=== PATIENT | female | born 1950 | race Hispanic/Latino ===

== ENCOUNTER 2018-06-15 20:43 | Emergency (ER) | payer OTHER ==
[2018-06-15] MEDS ORDERED: IBUPROFEN 400 MG TAB ONE (22:49)
[2018-06-15] MEDS ORDERED: ACETAMINOPHEN 325 MG TABLET ONE (23:12)
--- NOTE | 2018-06-15 23:14 | EDPHYS ---
Physician Documentation [facility] Name: Fiona Sandoval Age: 67 yrs Sex: Female : 1950 Arrival Date: 06/15/2018 Time: 20:58 Bed 9 Private MD: None, None ED Physician Dmitry Jonas HPI: 06/15 22:20 This 67 yrs old Female presents to ER via Wheelchair with complaints of Fall cp Injury. 22:20 Details of fall: The patient fell from an upright position, while walking. cp 22:20 Onset: The symptoms/episode began/occurred today. Associated injuries: The patient cp sustained right hip and right knee, painful ROM. 22:20 Severity of symptoms: in the emergency department the symptoms are unchanged, despite cp home interventions. Historical: - Allergies: 21:16 PENICILLINS; ak1 - Home Meds: 21:16 Simvastatin 100 mg Oral once daily [Active]; cyclobenzaprine 5 mg Oral tab 1 tab twice ak1 daily PRN for pain [Active]; - PMHx: 21:16 Hyperlipidemia; ak1 - PSHx: 21:16 None; ak1 - Immunization history:: Adult Immunizations unknown. - Social history:: Smoking status: Patient/guardian denies using tobacco. - Ebola Screening: : No symptoms or risks identified at this time. ROS: 22:25 Constitutional: Negative for body aches, chills, fever, poor PO intake. cp 22:25 Eyes: Negative for injury, pain, redness, and discharge. cp 22:25 Cardiovascular: Negative for chest pain, edema, palpitations. 22:25 Respiratory: Negative for cough, shortness of breath, wheezing. 22:25 Abdomen/GI: Negative for abdominal pain, nausea, vomiting, and diarrhea. 22:25 : Negative for urinary symptoms. 22:25 MS/extremity: Positive for pain, tenderness, of the right groin and right hip, Negative for decreased range of motion, deformity, paresthesias. 22:25 Neuro: Negative for altered mental status, headache, loss of consciousness, syncope, weakness. 22:25 All other systems are negative. Exam: 22:33 Constitutional: The patient appears in no acute distress, alert, awake, cp non-diaphoretic, non-toxic, well developed, well nourished. 22:33 Head/Face: Normocephalic, atraumatic. cp 22:33 Eyes: Periorbital structures: appear normal, Conjunctiva: normal, no exudate, no injection, Sclera: no appreciated abnormality, Lids and lashes: appear normal, bilaterally. 22:33 ENT: External ear(s): are unremarkable, Nose: is normal, Mouth: Lips: moist, Oral mucosa: moist, Posterior pharynx: is normal, airway is patent. 22:33 Neck: C-spine: vertebral tenderness, is not appreciated, crepitus, is not appreciated, ROM/movement: is normal, is supple, without pain, no range of motions limitations, no nuchal rigidity. 22:33 Chest/axilla: Inspection: normal, Palpation: is normal, no crepitus, no tenderness. 22:33 Cardiovascular: Rate: normal, Rhythm: regular. 22:33 Respiratory: the patient does not display signs of respiratory distress, Respirations: normal, no use of accessory muscles, no retractions, no splinting, no tachypnea. 22:33 Abdomen/GI: Inspection: abdomen appears normal, Bowel sounds: active, all quadrants, Palpation: abdomen is soft and non-tender, in all quadrants, rebound tenderness, is not appreciated, voluntary guarding, is not appreciated, involuntary guarding, is not appreciated. 22:33 Back: pain, is absent, ROM is normal, vertebral tenderness, is not appreciated. 22:33 Musculoskeletal/extremity: Perfusion: the extremity is normally perfused throughout, Sensation intact. Joints: All joints are normal except the right hip displays painful range of motion, tenderness, Weight bearing: able to fully bear weight. 22:33 Skin: cellulitis, is not appreciated, no rash present. 22:33 Neuro: Orientation: to person, place \T\ time. Mentation: is normal, Cerebellar function: is grossly normal, Motor: is normal, Sensation: is normal. 22:35 Musculoskeletal/extremity: Extremities: noted in the right knee: tenderness, There is cp no evidence of decreased ROM, deformity. Vital Signs: 21:13 Pulse 73; Resp 18; Temp 98.1(O); Pulse Ox 98% on R/A; Weight 83.91 kg (R); Height 5 ft. ak1 3 in. (160.02 cm) (R); Pain 6/10; 21:16 BP 124 / 72; ak1 21:13 Body Mass Index 32.77 (83.91 kg, 160.02 cm) ak1 MDM: 21:42 Patient medically screened. cp 23:12 Data reviewed: vital signs, nurses notes, radiologic studies, plain films. cp 06/15 22:14 Order name: XRAY Knee RIGHT 3 view cp 06/15 22:14 Order name: XRAY Pelvis cp 06/15 22:14 Order name: XRAY Hip RIGHT 2 view cp Administered Medications: 22:46 Not Given (Patient Refused): Ibuprofen 800 mg PO once 23:02 Drug: Tylenol 650 mg Route: PO; 23:23 Follow up: Response: No adverse reaction; No change in condition Disposition: 06/16 07:00 Co-signature as Attending Physician, Dmitry Jonas MD I agree with the assessment and juanito plan of care. Disposition: 06/15/18 23:14 Discharged to Home. Impression: Other slipping, tripping and stumbling and falls, Pain in right hip - from fall. - Condition is Stable. - Discharge Instructions: Hip Pain. - Medication Reconciliation Form, Thank You Letter, Antibiotic Education, Prescription Opioid Use form. - Follow up: Private Physician; When: 5 - 6 days; Reason: pain continues. - Problem is new. - Symptoms have improved. Signatures: Dispatcher [employer] Dmitry Smith MD MD cha Chretien, Felicia, RN RN Ramya Salcedo RN RN ak1 Dmitry Hammonds PA PA Corrections: (The following items were deleted from the chart) 06/15 23:16 23:12 Crutches ordered. [facility] 23:26 23:14 06/15/2018 23:14 Discharged to Home. Impression: Other slipping, tripping and fc stumbling and falls; Pain in right hip - from fall. Condition is Stable. Forms are Medication Reconciliation Form, Thank You Letter, Antibiotic Education, Prescription Opioid Use. Follow up: Private Physician; When: 5 - 6 days; Reason: pain continues. Problem is new. Symptoms have improved. cp
--- NOTE | 2018-06-15 23:14 | ER ---
Nurse's Notes [facility] Name: Fiona Sandoval Age: 67 yrs Sex: Female : 1950 Arrival Date: 06/15/2018 Time: 20:58 Bed 9 Private MD: None, None Diagnosis: Other slipping, tripping and stumbling and falls;Pain in right hip-from fall Presentation: 06/15 21:14 Presenting complaint: Patient states: slipped and "did splits" no LOC. pt c/o pain to ak1 right inner thigh and right groin. Transition of care: patient was not received from another setting of care. Onset of symptoms was June 15, 2018. Risk Assessment: Do you want to hurt yourself or someone else? Patient reports no desire to harm self or others. Care prior to arrival: None. 21:14 Method Of Arrival: Wheelchair ak1 21:14 Acuity: CONSTANTIN 4 ak1 23:26 Initial Sepsis Screen: Does the patient meet any 2 criteria? No. Patient's initial fc sepsis screen is negative. Does the patient have a suspected source of infection? No. Patient's initial sepsis screen is negative. Triage Assessment: 21:16 General: Appears in no apparent distress. ak1 Historical: - Allergies: 21:16 PENICILLINS; ak1 - Home Meds: 21:16 Simvastatin 100 mg Oral once daily [Active]; cyclobenzaprine 5 mg Oral tab 1 tab twice ak1 daily PRN for pain [Active]; - PMHx: 21:16 Hyperlipidemia; ak1 - PSHx: 21:16 None; ak1 - Immunization history:: Adult Immunizations unknown. - Social history:: Smoking status: Patient/guardian denies using tobacco. - Ebola Screening: : No symptoms or risks identified at this time. Screenin:53 Abuse screen: Denies threats or abuse. Denies injuries from another. Nutritional aj screening: No deficits noted. Tuberculosis screening: No symptoms or risk factors identified. Fall Risk Fall in past 12 months (25 points). Assessment: 21:53 General: Appears in no apparent distress. comfortable, Behavior is calm, cooperative. aj Pain: Complains of pain in right femoral area. Neuro: Level of Consciousness is awake, alert, obeys commands, Oriented to person, place, time, situation, Appropriate for age. Respiratory: Airway is patent Respiratory effort is even, unlabored, Respiratory pattern is regular, symmetrical. Derm: Skin is intact, is healthy with good turgor, Skin is pink, warm \\T\\ dry. normal. Musculoskeletal: Reports pain in right femoral area. 22:44 Reassessment: Pt has just returned from radiology. Attempted to give her the ordered fc Ibuprofen. Pt states that she cannot take that because it causes her to have nausea/vomiting. 23:12 Reassessment: Dmitry KHOURY in to re-examine pt and discuss results with her. fc Vital Signs: 21:13 Pulse 73; Resp 18; Temp 98.1(O); Pulse Ox 98% on R/A; Weight 83.91 kg (R); Height 5 ft. ak1 3 in. (160.02 cm) (R); Pain 6/10; 21:16 BP 124 / 72; ak1 21:13 Body Mass Index 32.77 (83.91 kg, 160.02 cm) ak1 ED Course: 20:58 Patient arrived in ED. dl4 20:58 None, None is Private Physician. dl4 21:13 Arm band placed on Patient placed in waiting room, Patient notified of wait time. ak1 21:15 Triage completed. ak1 21:42 Dmitry Hammonds PA is PHCP. cp 21:42 Dmitry Jonas MD is Attending Physician. cp 21:52 Agustina Sarkar, RN is Primary Nurse. aj 21:53 Placed in gown. Bed in low position. aj 22:40 XRAY Knee RIGHT 3 view In Process Unspecified. EDMS 22:40 XRAY Pelvis In Process Unspecified. EDMS 22:40 XRAY Hip RIGHT 2 view In Process Unspecified. EDMS 23:24 No provider procedures requiring assistance completed. Patient did not have IV access fc during this emergency room visit. Administered Medications: 22:46 Not Given (Patient Refused): Ibuprofen 800 mg PO once fc 23:02 Drug: Tylenol 650 mg Route: PO; fc 23:23 Follow up: Response: No adverse reaction; No change in condition fc Outcome: 23:14 Discharge ordered by . cp 23:25 Discharged to home ambulatory, with family. fc 23:25 Condition: good 23:25 Discharge instructions given to patient, family, Instructed on discharge instructions, follow up and referral plans. Demonstrated understanding of instructions, follow-up care, Prescriptions given X none 23:26 Patient left the ED. fc Signatures: Dispatcher [employer] Agustina Ochoa RN RN aj Chretien, Felicia, RN RN fc Krenek, Amber, RN RN ak1 Dmitry Hammonds PA PA cp Luna, David dl4
--- NOTE | 2018-06-16 08:27 | RAD REPORT ---
EXAM DESCRIPTION: RAD - Knee Right 3 View - 06/15/2018 10:39 pm CLINICAL HISTORY: slip and fall COMPARISON: No comparisons FINDINGS: Mild medial compartment space narrowing is present with small tibial spine osteophytes. No acute fracture or dislocation seen. Trace suprapatellar joint fluid.
--- NOTE | 2018-06-16 08:28 | RAD REPORT ---
EXAM DESCRIPTION: RAD - Hip Right 2 View - 06/15/2018 10:39 pm CLINICAL HISTORY: slip and fall;Pain COMPARISON: None FINDINGS: AP pelvis and right hip - multiple projections is submitted Bilateral hip osteoarthritic changes are noted. No acute fracture or dislocation is evident. No evide nce of AVN.
--- NOTE | 2018-06-16 17:14 | RAD REPORT ---
EXAM DESCRIPTION: RAD - Pelvis - 06/15/2018 10:39 pm CLINICAL HISTORY: Slip and fall;Pain COMPARISON: None FINDINGS: AP pelvis and right hip - multiple projections is submitted Bilateral hip osteoarthritic changes are noted. No acute fracture or dislocation is evident. No evide nce of AVN.
== END 2018-06-15 23:26 | disposition home or self-care (01) ==
LOC: ER 20:43
DX: M25.551 Pain in right hip (principal); W01.0XXA Fall on same level from slipping, tripping and stumbling without subsequent striking against object, initial encounter; Y93.01 Activity, walking, marching and hiking; Y92.9 Unspecified place or not applicable; Z88.0 Allergy status to penicillin; E78.5 Hyperlipidemia, unspecified
CPT/HCPCS: 72170; 99283

== ENCOUNTER 2018-12-31 18:06 | Emergency (ER) | payer OTHER ==
[2018-12-31] MEDS ORDERED: IBUPROFEN 400 MG TAB ONE (19:16)
--- NOTE | 2018-12-31 20:56 | ER ---
Nurse's Notes [facility] Name: Fiona Sandoval Age: 68 yrs Sex: Female : 1950 Arrival Date: 12/31/2018 Time: 18:10 Bed 25 Private MD: Diagnosis: Acute pharyngitis Presentation: 12/31 18:13 Presenting complaint: Patient states: "My tonsils are swollen and have been hurting aj1 since this morning" Denies fever. Transition of care: patient was not received from another setting of care. Onset of symptoms was December 31, 2018. Risk Assessment: Do you want to hurt yourself or someone else? Patient reports no desire to harm self or others. Initial Sepsis Screen: Does the patient meet any 2 criteria? HR > 90 bpm. No. Patient's initial sepsis screen is negative. Does the patient have a suspected source of infection? No. Patient's initial sepsis screen is negative. Care prior to arrival: None. 18:13 Method Of Arrival: Ambulatory [facility] 18:13 Acuity: CONSTANTIN 4 aj1 Triage Assessment: 18:14 General: Appears in no apparent distress. comfortable, Behavior is calm, cooperative, aj1 appropriate for age. Pain: Complains of pain in left aspect of posterior pharynx and right aspect of posterior pharynx Pain currently is 7 out of 10 on a pain scale. EENT: Reports sore throat. Neuro: Level of Consciousness is awake, alert, obeys commands. Cardiovascular: Patient's skin is warm and dry. Respiratory: Airway is patent Respiratory effort is even, unlabored, Respiratory pattern is regular, symmetrical. Historical: - Allergies: 18:14 PENICILLINS; aj1 - Home Meds: 18:14 None [Active]; aj1 - PMHx: 18:14 Hyperlipidemia; aj1 - Immunization history:: Flu vaccine is up to date. - Social history:: Smoking status: Patient/guardian denies using tobacco. - Ebola Screening: : Patient denies travel to an Ebola-affected area in the 21 days before illness onset. Screenin:52 Abuse screen: Denies threats or abuse. Denies injuries from another. Nutritional mg2 screening: No deficits noted. Tuberculosis screening: No symptoms or risk factors identified. Fall Risk None identified. Assessment: 19:50 General: Appears in no apparent distress. comfortable, Behavior is calm, cooperative. mg2 Pain: Complains of pain in throat Pain does not radiate. Pain currently is 2 out of 10 on a pain scale. Quality of pain is described as aching, Pain began gradually. Neuro: Level of Consciousness is awake, alert, obeys commands, Oriented to person, place, time, situation. Cardiovascular: Capillary refill < 3 seconds Patient's skin is warm and dry. Respiratory: Airway is patent Respiratory effort is even, unlabored, Respiratory pattern is regular, symmetrical, Breath sounds are clear bilaterally. in mediastinum, right upper lobe, left upper lobe, right middle lobe, left lower lobe and right lower lobe. GI: No signs and/or symptoms were reported involving the gastrointestinal system. : No signs and/or symptoms were reported regarding the genitourinary system. EENT: Throat is reddened. Derm: Skin is intact, is healthy with good turgor, Skin is pink, warm \\T\\ dry. normal. Musculoskeletal: Circulation, motion, and sensation intact. Capillary refill < 3 seconds. Vital Signs: 18:14 BP 141 / 80; Pulse 96; Resp 18; Temp 99.1(TE); Pulse Ox 97% on R/A; Weight 86.18 kg aj1 (R); Height 5 ft. 4 in. (162.56 cm) (R); 19:20 BP 112 / 64; Pulse 96; Resp 18; Pulse Ox 100% on R/A; mg2 19:52 BP 120 / 78; Pulse 90; Resp 17; Temp 98; Pulse Ox 100% on R/A; Pain 1/10; mg2 18:14 Body Mass Index 32.61 (86.18 kg, 162.56 cm) aj ED Course: 18:10 Patient arrived in ED. mr 18:13 Triage completed. aj1 18:14 Arm band placed on Patient placed in an exam room. aj1 18:22 Shravan Blandon RN is Primary Nurse. mg2 18:25 Dmitry Hammonds PA is PHCP. cp 18:25 Nicolas Blackwell MD is Attending Physician. cp 19:52 No provider procedures requiring assistance completed. Patient did not have IV access mg2 during this emergency room visit. 19:53 Patient has correct armband on for positive identification. mg2 Administered Medications: 19:20 Drug: Ibuprofen 800 mg Route: PO; mg2 19:50 Follow up: Response: No adverse reaction; Marked relief of symptoms mg2 Outcome: 19:41 Discharge ordered by . cp 19:53 Discharged to home ambulatory. mg2 19:53 Condition: stable 19:53 Discharge instructions given to patient, Instructed on discharge instructions, follow up and referral plans. medication usage, Demonstrated understanding of instructions, follow-up care, medications, Prescriptions given X 1. 19:53 Patient left the ED. mg2 Signatures: Kacy Grider RN RN aj1 Ilsa Cortes mr Dmitry Hammonds PA PA cp Gardose, Michele, RN RN mg2
--- NOTE | 2018-12-31 20:57 | EDPHYS ---
Physician Documentation [facility] Name: Fiona Sandoval Age: 68 yrs Sex: Female : 1950 Arrival Date: 12/31/2018 Time: 18:10 Bed 25 Private MD: ED Physician Nicolas Blackwell HPI: 12/31 18:55 This 68 yrs old Female presents to ER via Ambulatory with complaints of Sore cp Throat. 18:55 The patient presents with sore throat. The patient describes throat pain as constant. cp Onset: The symptoms/episode began/occurred this morning. Severity of symptoms: in the emergency department the symptoms are unchanged, despite home interventions. Modifying factors: the symptoms are aggravated by swallowing. Associated signs and symptoms: Pertinent negatives cough, dysphagia, earache, fever, headache, vomiting. Historical: - Allergies: 18:14 PENICILLINS; aj1 - Home Meds: 18:14 None [Active]; aj1 - PMHx: 18:14 Hyperlipidemia; aj1 - Immunization history:: Flu vaccine is up to date. - Social history:: Smoking status: Patient/guardian denies using tobacco. - Ebola Screening: : Patient denies travel to an Ebola-affected area in the 21 days before illness onset. ROS: 19:05 Constitutional: Negative for body aches, chills, fever, poor PO intake. cp 19:05 Eyes: Negative for injury, pain, redness, and discharge. cp 19:05 ENT: Positive for sore throat, Negative for drainage from ear(s), ear pain, rhinorrhea, difficulty swallowing, difficulty handling secretions. 19:05 Neck: Negative for pain with movement, pain at rest, stiffness. 19:05 Cardiovascular: Negative for chest pain. 19:05 Respiratory: Negative for cough, shortness of breath, wheezing. 19:05 Abdomen/GI: Negative for abdominal pain, nausea, vomiting, and diarrhea. 19:05 Skin: Negative for rash. 19:05 Neuro: Negative for headache. 19:05 All other systems are negative. Exam: 19:10 Constitutional: The patient appears in no acute distress, alert, awake, non-toxic, well cp developed, well nourished. 19:10 Head/Face: Normocephalic, atraumatic. cp 19:10 Eyes: Periorbital structures: appear normal, Conjunctiva: normal, Lids and lashes: appear normal, bilaterally. 19:10 ENT: External ear(s): are unremarkable, Ear canal(s): are normal, clear, TM's: bulging, is not appreciated, bilaterally, dullness, bilaterally, erythema, is not appreciated, bilaterally, Nose: is normal, Mouth: is normal, Posterior pharynx: Airway: no evidence of obstruction, patent, Tonsils: with erythema, no enlargement, no exudate, Uvula: midline, erythema, that is moderate, exudate, is not appreciated. 19:10 Neck: ROM/movement: is normal, is supple, without pain, no range of motions limitations, no meningismus, no nuchal rigidity. 19:10 Chest/axilla: Inspection: normal. 19:10 Cardiovascular: Rate: normal. 19:10 Respiratory: the patient does not display signs of respiratory distress, Respirations: normal, Breath sounds: are clear throughout, no decreased breath sounds, no stridor, no wheezing. Vital Signs: 18:14 BP 141 / 80; Pulse 96; Resp 18; Temp 99.1(TE); Pulse Ox 97% on R/A; Weight 86.18 kg aj1 (R); Height 5 ft. 4 in. (162.56 cm) (R); 19:20 BP 112 / 64; Pulse 96; Resp 18; Pulse Ox 100% on R/A; mg2 19:52 BP 120 / 78; Pulse 90; Resp 17; Temp 98; Pulse Ox 100% on R/A; Pain 1/10; mg2 18:14 Body Mass Index 32.61 (86.18 kg, 162.56 cm) [facility] MDM: 18:26 Patient medically screened. cp 19:40 Data reviewed: vital signs, nurses notes, lab test result(s), and as a result, I will cp discharge patient. 19:40 Differential diagnosis: group A strep tonsillitis, peritonsillar abscess cp retropharyngeal abcess. Counseling: I had a detailed discussion with the patient and/or guardian regarding: the historical points, exam findings, and any diagnostic results supporting the discharge/admit diagnosis, lab results, to return to the emergency department if symptoms worsen or persist or if there are any questions or concerns that arise at home. Response to treatment: the patient's symptoms have mildly improved after treatment, and as a result, I will discharge patient. 12/31 18:33 Order name: Strep mg2 12/31 19:11 Order name: Group A Streptococcus Rapid Sc EDGA 12/31 19:13 Order name: PO challenge; Complete Time: 19:20 cp Administered Medications: 19:20 Drug: Ibuprofen 800 mg Route: PO; mg2 19:50 Follow up: Response: No adverse reaction; Marked relief of symptoms mg2 Disposition: 01/01 07:22 Co-signature as Attending Physician, Nicolas Blackwell MD I agree with the assessment and kdr plan of care. Disposition: 12/31/18 19:41 Discharged to Home. Impression: Acute pharyngitis. - Condition is Stable. - Discharge Instructions: Pharyngitis, Sore Throat. - Prescriptions for Ibuprofen 800 mg Oral Tablet - take 1 tablet by ORAL route every 8 hours As needed take with food; 30 tablet. - Medication Reconciliation Form, Thank You Letter, Antibiotic Education, Prescription Opioid Use form. - Follow up: Private Physician; When: 2 - 3 days; Reason: Worsening of condition. - Problem is new. - Symptoms have improved. Signatures: Dispatcher [employer] [facility] Kacy Grider RN RN aj1 Nicolas Blackwell MD MD kdr Dmitry Hammonds PA PA cp Shravan Blandon RN RN mg2 Corrections: (The following items were deleted from the chart) 12/31 19:53 19:41 12/31/2018 19:41 Discharged to Home. Impression: Acute pharyngitis. Condition is mg2 Stable. Forms are Medication Reconciliation Form, Thank You Letter, Antibiotic Education, Prescription Opioid Use. Follow up: Private Physician; When: 2 - 3 days; Reason: Worsening of condition. Problem is new. Symptoms have improved. cp
== END 2018-12-31 19:53 | disposition home or self-care (01) ==
LOC: ER 18:06
DX: J02.9 Acute pharyngitis, unspecified (principal); Z88.0 Allergy status to penicillin
CPT/HCPCS: 87070; 87081; 99283

== ENCOUNTER 2019-03-18 12:07 | Emergency (ER) | payer OTHER ==
[2019-03-18 13:09] LABS: Urine Blood 2+ (NEG); Urine Glucose NEGATIVE (NEG); Urine Protein NEGATIVE (NEG); Urine pH 6.5 (5.0-7.0)
--- NOTE | 2019-03-18 13:17 | EDPHYS ---
Physician Documentation [facility] Name: Fiona Sandoval Age: 68 yrs Sex: Female : 1950 Arrival Date: 03/18/2019 Time: 12:11 Bed 10 Private MD: Dee Wells K ED Physician Nicolas Blackwell HPI: 03/18 14:21 This 68 yrs old Female presents to ER via Ambulatory with complaints of kdr Infection. 14:21 The patient presents with perineal itching, of both inguinal areas, urinary symptoms, kdr dysuria, frequency, hematuria, hesitancy, incontinence, urgency. Onset: The symptoms/episode began/occurred gradually, 1 month(s) ago. Modifying factors: The symptoms are alleviated by nothing, the symptoms are aggravated by urinating. Associated signs and symptoms: The patient has no apparent associated signs or symptoms. Severity of symptoms: At their worst the symptoms were mild, in the emergency department the symptoms are unchanged. The patient has experienced similar episodes in the past, a few times. The patient has not recently seen a physician. Historical: - Allergies: 12:32 PENICILLINS; ph - PMHx: 12:32 Hyperlipidemia; ph - PSHx: 12:32 ; ph - Immunization history:: Adult Immunizations unknown. - Social history:: Smoking status: Patient/guardian denies using tobacco. - Ebola Screening: : No symptoms or risks identified at this time. ROS: 14:21 Constitutional: Negative for fever, chills, and weight loss, Eyes: Negative for injury, kdr pain, redness, and discharge, Neck: Negative for injury, pain, and swelling, Cardiovascular: Negative for chest pain, palpitations, and edema, Respiratory: Negative for shortness of breath, cough, wheezing, and pleuritic chest pain, Abdomen/GI: Negative for abdominal pain, nausea, vomiting, diarrhea, and constipation, Back: Negative for injury and pain, MS/Extremity: Negative for injury and deformity, Skin: Negative for injury, rash, and discoloration, Neuro: Negative for headache, weakness, numbness, tingling, and seizure activity. Psych: Negative for depression, anxiety, suicide ideation, homicidal ideation, and hallucinations, Allergy/Immunology: Negative for hives, rash, and allergies, Endocrine: Negative for neck swelling, polydipsia, polyuria, polyphagia, and marked weight changes, Hematologic/Lymphatic: Negative for swollen nodes, abnormal bleeding, and unusual bruising. 14:21 : Positive for urinary symptoms, vaginal itching. Exam: 14:21 Constitutional: This is a well developed, well nourished patient who is awake, alert, kdr and in no acute distress. Abdomen/GI: Soft, non-tender, with normal bowel sounds. No distension or tympany. No guarding or rebound. No evidence of tenderness throughout. Back: No spinal tenderness. No costovertebral tenderness. Full range of motion. Vital Signs: 12:31 BP 132 / 70; Pulse 81; Resp 18; Temp 97.8; Pulse Ox 97% on R/A; Weight 86.18 kg; Height ph 5 ft. 3 in. (160.02 cm); 12:31 Body Mass Index 33.66 (86.18 kg, 160.02 cm) ph MDM: 13:16 Patient medically screened. kdr 14:21 Data reviewed: vital signs, nurses notes, lab test result(s). Counseling: I had a kdr detailed discussion with the patient and/or guardian regarding: the historical points, exam findings, and any diagnostic results supporting the discharge/admit diagnosis, lab results, radiology results, the need for outpatient follow up. 03/18 13:05 Order name: Urine Microscopic Only 03/18 13:05 Order name: Urine Culture 03/18 13:05 Order name: Urine Dipstick-Ancillary (obtain specimen); Complete Time: 13:06 03/18 13:06 Order name: Urine Dipstick--Ancillary (enter results); Complete Time: 13:13 Administered Medications: 13:37 Drug: Bactrim (160 mg-800 mg (DS) 1 tablet Route: PO; 13:37 Follow up: Response: Medication administered at discharge. Disposition: 03/18/19 13:16 Discharged to Home. Impression: Urinary tract infection, site not specified. - Condition is Stable. - Discharge Instructions: Urinary Tract Infection, Adult, [id number]. - Prescriptions for Bactrim DS 800- 160 mg Oral Tablet - take 1 tablet by ORAL route every 12 hours for 10 days; 20 tablet. - Medication Reconciliation Form, Thank You Letter, Antibiotic Education, Work release form form. - Follow up: Dee Wells MD; When: 2 - 3 days; Reason: If symptoms return, Further diagnostic work-up, Recheck today's complaints, Continuance of care, Re-evaluation by your physician. - Problem is an ongoing problem. - Symptoms are unchanged. Signatures: Dispatcher [employer] EDAR Nicolas Blackwell MD MD kdr Angela Miller RN RN ss Yolanda Ward RN RN ph Corrections: (The following items were deleted from the chart) 13:38 13:16 03/18/2019 13:16 Discharged to Home. Impression: Urinary tract infection, site ss not specified. Condition is Stable. Forms are Work release form, Medication Reconciliation Form, Thank You Letter, Antibiotic Education, Prescription Opioid Use. Follow up: Dee Wells; When: 2 - 3 days; Reason: If symptoms return, Further diagnostic work-up, Recheck today's complaints, Continuance of care, Re-evaluation by your physician. Problem is an ongoing problem. Symptoms are unchanged. kdr
--- NOTE | 2019-03-18 13:17 | ER ---
Nurse's Notes [facility] Name: Fiona Sandoval Age: 68 yrs Sex: Female : 1950 Arrival Date: 03/18/2019 Time: 12:11 Bed 10 Private MD: Dee eWlls K Diagnosis: Urinary tract infection, site not specified Presentation: 03/18 12:29 Presenting complaint: Patient states: Vaginal itching, burning, burning w/ urination, ph urinary frequency x approx 1 month, tried OTC meds w/ no relief, denies fever N/V or abdominal pain. Transition of care: patient was not received from another setting of care. Onset of symptoms was March 18, 2019. Risk Assessment: Do you want to hurt yourself or someone else? Patient reports no desire to harm self or others. Initial Sepsis Screen: Does the patient meet any 2 criteria? No. Patient's initial sepsis screen is negative. Does the patient have a suspected source of infection? Yes: Dysuria/Frequency/Urgency/UTI. Care prior to arrival: None. 12:29 Method Of Arrival: Ambulatory ph 12:29 Acuity: CONSTANTIN 4 ph Historical: - Allergies: 12:32 PENICILLINS; ph - PMHx: 12:32 Hyperlipidemia; ph - PSHx: 12:32 ; ph - Immunization history:: Adult Immunizations unknown. - Social history:: Smoking status: Patient/guardian denies using tobacco. - Ebola Screening: : No symptoms or risks identified at this time. Screenin:01 Abuse screen: Denies threats or abuse. Denies injuries from another. Nutritional ph screening: No deficits noted. Tuberculosis screening: No symptoms or risk factors identified. Fall Risk None identified. Assessment: 13:00 General: Appears in no apparent distress. comfortable, well groomed, Behavior is calm, ph cooperative, appropriate for age, Denies fever, chills. Pain: Denies pain. Neuro: Level of Consciousness is awake, alert, obeys commands, Oriented to person, place, time, situation. Cardiovascular: Capillary refill < 3 seconds in bilateral fingers Patient's skin is warm and dry. Respiratory: Airway is patent Respiratory effort is even, unlabored. GI: Patient currently denies abdominal pain, nausea, vomiting. : Reports burning with urination, urinary frequency, vaginal itching. Derm: Skin is intact, is healthy with good turgor, Skin is pink, warm \T\ dry. Musculoskeletal: Circulation, motion, and sensation intact. Range of motion: intact in all extremities. Vital Signs: 12:31 BP 132 / 70; Pulse 81; Resp 18; Temp 97.8; Pulse Ox 97% on R/A; Weight 86.18 kg; Height ph 5 ft. 3 in. (160.02 cm); 12:31 Body Mass Index 33.66 (86.18 kg, 160.02 cm) ph ED Course: 12:11 Patient arrived in ED. mr 12:12 Dee Wells MD is Private Physician. mr 12:18 Nicolas Blackwell MD is Attending Physician. kdr 12:31 Triage completed. ph 12:32 Arm band placed on Patient placed in an exam room, on a stretcher. ph 12:53 Angela Miller RN is Primary Nurse. ss 13:01 Patient has correct armband on for positive identification. Bed in low position. Call light in reach. Side rails up X 1. 13:14 Dee Wells MD is Referral Physician. kdr 13:38 No provider procedures requiring assistance completed. Patient did not have IV access ss during this emergency room visit. Administered Medications: 13:37 Drug: Bactrim (160 mg-800 mg (DS) 1 tablet Route: PO; ss 13:37 Follow up: Response: Medication administered at discharge. ss Outcome: 13:16 Discharge ordered by . kdr 13:38 Discharged to home ambulatory. ss 13:38 Condition: good 13:38 Discharge instructions given to patient, family, Instructed on discharge instructions, follow up and referral plans. medication usage, Demonstrated understanding of instructions, follow-up care, medications, Prescriptions given X 1. 13:38 Patient left the ED. ss Addendum: 03/21/2019 11:15 Addendum: Culture Results: Positive urine culture. Bacteria is resistant to, has a a5 intermediate sensitivity, or is not tested against prescribed antibiotics. Report given to DAKOTA for further evaluation and then to virology teacher for follow up with patient. Phone call Attempt #1 at [phone], left voicemail Attempt #2 at [phone]. Signatures: Nicolas Blackwell MD MD [facility] Aud[facility], RN RN aa5 Angela Miller, RN RN ss Yolanda Ward, RN RN ph
[2019-03-18] MEDS ORDERED: SMZ./TMP. 800/160 MG TABLET ONE (13:33)
[2019-03-18 13:35] LABS: Urine Bacteria 20-50 /HPF (<20); Urine Culture Reflex Order REFLEXED
[2019-03-18 16:03] VITALS: BP 132/70; TEMP 97.8; O2SAT 97
== END 2019-03-18 13:38 | disposition home or self-care (01) ==
LOC: ER 12:07
DX: N39.0 Urinary tract infection, site not specified (principal); E78.5 Hyperlipidemia, unspecified; Z88.0 Allergy status to penicillin
CPT/HCPCS: 81003; 81015; 87077; 87086; 87088; 87186; 99283

== ENCOUNTER 2019-04-09 21:29 | Emergency (ER) | payer OTHER ==
[2019-04-09 22:16] LABS: Urine Blood 2+ (NEG); Urine Glucose NEGATIVE (NEG); Urine Protein TRACE (NEG); Urine Specific Gravity 1.025 (1.005-1.030); Urine pH 5.5 (5.0-7.0)
[2019-04-09] MEDS ORDERED: NA CHLORIDE 0.9% 1,000 ML ONE (23:17)
[2019-04-09] MEDS ORDERED: CEFTRIAXONE/SWI 1gm 1 GM/10 ML SYR ONE (23:17)
[2019-04-09 23:20] LABS: Absolute Lymphocytes (CBC) 2.9 K/uL (0.7-4.9); Basophils % 1.3 % (0-1.3); Hematocrit 41.2 % (36.0-45.0); MPV 10.2 fL (7.6-11.3); RBC Red Blood Cell Count 4.09 M/uL (3.86-4.86)
[2019-04-09] MEDS ORDERED: CIPROFLOXACIN HCL 500 MG TAB ONE (23:31)
[2019-04-09 23:33] LABS: Albumin 3.8 g/dL (3.4-5.0); Bilirubin Direct 0.1 mg/dL (0-0.2); Bilirubin Total 0.4 mg/dL (0.2-1.0); Potassium 3.6 mmol/L (3.5-5.1); Protein, Total 7.4 g/dL (6.4-8.2)
--- NOTE | 2019-04-10 00:15 | ER ---
Nurse's Notes [facility] Name: Fiona Sandoval Age: 68 yrs Sex: Female : 1950 Arrival Date: 04/09/2019 Time: 21:32 Bed 8 Private MD: Diagnosis: Urinary tract infection, site not specified;Abdominal tenderness Presentation: 04/09 21:35 Presenting complaint: Patient states: "For about a month now I have had a bladder jd3 infection. I finished taking the medications, but i am still having a burning sensation when I pee.". Transition of care: patient was not received from another setting of care. Onset of symptoms was April 09, 2019. Risk Assessment: Do you want to hurt yourself or someone else? Patient reports no desire to harm self or others. Initial Sepsis Screen: Does the patient meet any 2 criteria? No. Patient's initial sepsis screen is negative. Does the patient have a suspected source of infection? No. Patient's initial sepsis screen is negative. Care prior to arrival: None. 21:35 Method Of Arrival: Ambulatory jd3 21:35 Acuity: CONSTANTIN 4 jd3 Historical: - Allergies: 21:37 PENICILLINS; jd3 21:37 codien; jd3 - Home Meds: 21:37 None [Active]; jd3 - PMHx: 21:37 Hyperlipidemia; jd3 - PSHx: 21:37 ; jd3 - Immunization history:: Adult Immunizations up to date. - Social history:: Smoking status: Patient/guardian denies using tobacco. - Ebola Screening: : Patient negative for fever greater than or equal to 101.5 degrees Fahrenheit, and additional compatible Ebola Virus Disease symptoms. - Family history:: not pertinent. Screenin:22 Abuse screen: Denies threats or abuse. Nutritional screening: No deficits noted. jd3 Tuberculosis screening: No symptoms or risk factors identified. Fall Risk IV access (20 points). Ambulatory Aid- None/Bed Rest/Nurse Assist (0 pts). Gait- Normal/Bed Rest/Wheelchair (0 pts) Mental Status- Oriented to own ability (0 pts). Total Layton Fall Scale indicates No Risk (0-24 pts). Assessment: 23:21 General: Appears in no apparent distress. comfortable, Behavior is calm, cooperative, jd3 appropriate for age. Pain: Denies pain. Neuro: Level of Consciousness is awake, alert, obeys commands, Oriented to person, place, time, situation. Cardiovascular: Capillary refill < 3 seconds Patient's skin is warm and dry. Respiratory: Airway is patent Respiratory effort is even, unlabored, Respiratory pattern is regular, symmetrical. GI: No signs and/or symptoms were reported involving the gastrointestinal system. : Reports burning with urination, urinary frequency. EENT: No signs and/or symptoms were reported regarding the EENT system. Derm: Skin is intact, Skin is dry, Skin is normal, Skin temperature is warm. Musculoskeletal: Circulation, motion, and sensation intact. Range of motion: intact in all extremities. 04/10 00:28 Reassessment: Patient appears in no apparent distress at this time. Patient and/or jd3 family updated on plan of care and expected duration. Pain level reassessed. Patient is alert, oriented x 3, equal unlabored respirations, skin warm/dry/pink. Patient states feeling better. Vital Signs: 04/09 21:37 BP 130 / 67; Pulse 81; Resp 16 S; Temp 97.2(TE); Pulse Ox 98% on R/A; Weight 86.18 kg j (R); Height 5 ft. 3 in. (160.02 cm) (R); Pain 0/10; 23:22 BP 117 / 63; Pulse 79; Resp 17 S; Pulse Ox 99% on R/A; jd3 04/10 00:28 BP 121 / 53; Pulse 82; Resp 16 S; Pulse Ox 99% on R/A; Pain 0/10; jd3 04/09 21:37 Body Mass Index 33.66 (86.18 kg, 160.02 cm) [facility] ED Course: 04/09 21:32 Patient arrived in ED. cl3 21:36 Triage completed. jd3 21:38 Arm band placed on. jd3 21:48 Dmitry Jonas MD is Attending Physician. juanito 21:50 Syeda Juan, RN is Primary Nurse. lp1 22:57 CT Stone Protocol In Process Unspecified. EDMS 23:07 Inserted saline lock: 20 gauge in right forearm, using aseptic technique. Blood oe collected. 23:21 Primary Nurse role handed off by Syeda Juan, RN j 23:21 Morris, Pete, RN is Primary Nurse. jd3 23:22 Patient has correct armband on for positive identification. Placed in gown. Bed in low jd3 position. Call light in reach. Side rails up X 1. Adult w/ patient. 04/10 00:29 No provider procedures requiring assistance completed. IV discontinued, intact, jd3 bleeding controlled, No redness/swelling at site. Pressure dressing applied. 00:42 Primary Nurse role handed off by Pete Morris RN jd3 Administered Medications: 04/09 23:20 Drug: NS 0.9% 1000 ml Route: IV; Rate: 1 bolus; Site: right forearm; jd3 04/10 00:17 Follow up: Response: No adverse reaction; IV Status: Completed infusion; IV Intake: jd3 1000ml 04/09 23:20 Drug: Rocephin 1 grams Route: IV; Rate: per protocol; Site: right forearm; jd3 04/10 00:18 Follow up: Response: No adverse reaction; IV Status: Completed infusion jd3 04/09 23:34 Drug: Cipro 500 mg Route: PO; jd3 04/10 00:18 Follow up: Response: No adverse reaction jd3 Intake: 00:17 IV: 1000ml; Total: 1000ml. jd3 Outcome: 00:14 Discharge ordered by . juanito 00:29 Discharged to home ambulatory, with family. jd3 00:29 Condition: stable 00:29 Discharge instructions given to patient, family, Instructed on discharge instructions, follow up and referral plans. medication usage, Demonstrated understanding of instructions, follow-up care, medications, Prescriptions given X 2. 00:30 Patient left the ED. jd3 00:43 Patient left the ED. jd3 Addendum: 04/12/2019 07:59 Addendum: Culture Results: Positive urine culture. No further action required. Bacteria s s sensitive to prescribed antibiotic. Signatures: Dispatcher [employer] EDMS Dmitry Jonas MD MD cha Smirch, Shelby, RN RN ss Syeda Juan RN RN lp1 Robert Hernandez Jonathon, FATUMA RN [email or web address] Jacki Francisco cl3
--- NOTE | 2019-04-10 00:15 | EDPHYS ---
Physician Documentation [facility] Name: Fiona Sandoval Age: 68 yrs Sex: Female : 1950 Arrival Date: 04/09/2019 Time: 21:32 Bed 8 Private MD: ED Physician Dmitry Jonas HPI: 04/09 22:51 This 68 yrs old Female presents to ER via Ambulatory with complaints of Pain juanito With Urination. 22:51 The patient presents with flank pain, urinary symptoms, dysuria, frequency, urgency. juanito Onset: The symptoms/episode began/occurred 1 month(s) ago. Modifying factors: The symptoms are alleviated by nothing, the symptoms are aggravated by nothing. urinating. Associated signs and symptoms: The patient has no apparent associated signs or symptoms. Severity of symptoms: At their worst the symptoms were very mild, mild, in the emergency department the symptoms are unchanged, are actually worse. The patient is not sexually active. The patient has experienced similar episodes in the past, several times. Historical: - Allergies: 21:37 PENICILLINS; jd3 21:37 codien; jd3 - Home Meds: 21:37 None [Active]; jd3 - PMHx: 21:37 Hyperlipidemia; jd3 - PSHx: 21:37 ; jd3 - Immunization history:: Adult Immunizations up to date. - Social history:: Smoking status: Patient/guardian denies using tobacco. - Ebola Screening: : Patient negative for fever greater than or equal to 101.5 degrees Fahrenheit, and additional compatible Ebola Virus Disease symptoms. - Family history:: not pertinent. ROS: 22:51 Constitutional: Negative for fever, chills, and weight loss, Eyes: Negative for injury, juanito pain, redness, and discharge, ENT: Negative for injury, pain, and discharge, Neck: Negative for injury, pain, and swelling, Cardiovascular: Negative for chest pain, palpitations, and edema, Respiratory: Negative for shortness of breath, cough, wheezing, and pleuritic chest pain, Back: Negative for injury and pain, : Negative for injury, bleeding, discharge, and swelling, MS/Extremity: Negative for injury and deformity, Skin: Negative for injury, rash, and discoloration, Neuro: Negative for headache, weakness, numbness, tingling, and seizure, Psych: Negative for depression, anxiety, suicide ideation, homicidal ideation, and hallucinations, Allergy/Immunology: Negative for hives, rash, and allergies, Endocrine: Negative for neck swelling, polydipsia, polyuria, polyphagia, and marked weight changes, Hematologic/Lymphatic: Negative for swollen nodes, abnormal bleeding, and unusual bruising. 22:51 Abdomen/GI: Positive for abdominal pain, of the suprapubic area. Exam: 22:51 Constitutional: This is a well developed, well nourished patient who is awake, alert, juanito and in no acute distress. Head/Face: Normocephalic, atraumatic. Eyes: Pupils equal round and reactive to light, extra-ocular motions intact. Lids and lashes normal. Conjunctiva and sclera are non-icteric and not injected. Cornea within normal limits. Periorbital areas with no swelling, redness, or edema. ENT: Nares patent. No nasal discharge, no septal abnormalities noted. Tympanic membranes are normal and external auditory canals are clear. Oropharynx with no redness, swelling, or masses, exudates, or evidence of obstruction, uvula midline. Mucous membranes moist. Neck: Trachea midline, no thyromegaly or masses palpated, and no cervical lymphadenopathy. Supple, full range of motion without nuchal rigidity, or vertebral point tenderness. No Meningismus. Chest/axilla: Normal chest wall appearance and motion. Nontender with no deformity. No lesions are appreciated. Cardiovascular: Regular rate and rhythm with a normal S1 and S2. No gallops, murmurs, or rubs. Normal PMI, no JVD. No pulse deficits. Respiratory: Lungs have equal breath sounds bilaterally, clear to auscultation and percussion. No rales, rhonchi or wheezes noted. No increased work of breathing, no retractions or nasal flaring. Back: No spinal tenderness. No costovertebral tenderness. Full range of motion. Female : Normal external genitalia. Skin: Warm, dry with normal turgor. Normal color with no rashes, no lesions, and no evidence of cellulitis. MS/ Extremity: Pulses equal, no cyanosis. Neurovascular intact. Full, normal range of motion. Neuro: Awake and alert, GCS 15, oriented to person, place, time, and situation. Cranial nerves II-XII grossly intact. Motor strength 5/5 in all extremities. Sensory grossly intact. Cerebellar exam normal. Normal gait. Psych: Awake, alert, with orientation to person, place and time. Behavior, mood, and affect are within normal limits. 22:51 Abdomen/GI: Inspection: abdomen appears normal, Bowel sounds: normal, Liver: no appreciated palpable abnormalities, Hernia: not appreciated. Vital Signs: 21:37 BP 130 / 67; Pulse 81; Resp 16 S; Temp 97.2(TE); Pulse Ox 98% on R/A; Weight 86.18 kg jd3 (R); Height 5 ft. 3 in. (160.02 cm) (R); Pain 0/10; 23:22 BP 117 / 63; Pulse 79; Resp 17 S; Pulse Ox 99% on R/A; jd3 04/10 00:28 BP 121 / 53; Pulse 82; Resp 16 S; Pulse Ox 99% on R/A; Pain 0/10; jd3 04/09 21:37 Body Mass Index 33.66 (86.18 kg, 160.02 cm) [facility] MDM: 04/09 21:48 Patient medically screened. [facility] 22:53 Data reviewed: vital signs, nurses notes, lab test result(s), radiologic studies, CT juanito scan. 04/09 21:50 Order name: Urine Culture lp1 04/09 22:10 Order name: Urine Dipstick--Ancillary (enter results); Complete Time: 00:12 ar5 04/09 22:24 Order name: Basic Metabolic Panel; Complete Time: 00:12 [facility] 04/09 22:24 Order name: CBC with Diff; Complete Time: 00:12 [facility] 04/09 22:24 Order name: Creatinine for Radiology; Complete Time: 00:12 [facility] 04/09 22:24 Order name: Hepatic Function; Complete Time: 00:12 [facility] 04/09 21:50 Order name: Urine Dipstick-Ancillary (obtain specimen); Complete Time: 21:49 lp1 04/09 22:24 Order name: Lipase; Complete Time: 00:12 [facility] 04/09 22:24 Order name: IV Saline Lock; Complete Time: 23:11 [facility] 04/09 22:24 Order name: Labs collected and sent; Complete Time: 23:11 [facility] 04/09 22:24 Order name: CT Stone Protocol juanito Administered Medications: 23:20 Drug: NS 0.9% 1000 ml Route: IV; Rate: 1 bolus; Site: right forearm; jd3 04/10 00:17 Follow up: Response: No adverse reaction; IV Status: Completed infusion; IV Intake: jd3 1000ml 04/09 23:20 Drug: Rocephin 1 grams Route: IV; Rate: per protocol; Site: right forearm; jd3 04/10 00:18 Follow up: Response: No adverse reaction; IV Status: Completed infusion jd3 04/09 23:34 Drug: Cipro 500 mg Route: PO; jd3 04/10 00:18 Follow up: Response: No adverse reaction jd3 Disposition: 04/10/19 00:14 Discharged to Home. Impression: Urinary tract infection, site not specified, Abdominal tenderness. - Condition is Stable. - Discharge Instructions: Dysuria, Urinary Tract Infection, Adult, Urinary Tract Infection, Adult, [id number]. - Prescriptions for Pyridium 200 mg Oral Tablet - take 1 tablet by ORAL route every 8 hours for 3 days; 9 tablet. Cipro 500 mg Oral Tablet - take 1 tablet by ORAL route every 12 hours for 7 days; 14 tablet. - Medication Reconciliation Form, Thank You Letter, Antibiotic Education, Prescription Opioid Use, Work release form form. - Follow up: Private Physician; When: 2 - 3 days; Reason: Recheck today's complaints, Continuance of care, Re-evaluation by your physician. - Problem is new. - Symptoms have improved. Signatures: Dispatcher [employer] EDMO Dmitry Jonas MD MD cha Pena, Laura, RN RN lp1 Pete Morris RN RN jd3 Corrections: (The following items were deleted from the chart) 00:30 00:14 04/10/2019 00:14 Discharged to Home. Impression: Urinary tract infection, site jd3 not specified; Abdominal tenderness. Condition is Stable. Discharge Instructions: Dysuria, Urinary Tract Infection, Adult, Urinary Tract Infection, Adult, [id number]. Prescriptions for Pyridium 200 mg Oral Tablet - take 1 tablet by ORAL route every 8 hours for 3 days; 9 tablet, Cipro 500 mg Oral Tablet - take 1 tablet by ORAL route every 12 hours for 7 days; 14 tablet. and Forms are Medication Reconciliation Form, Thank You Letter, Antibiotic Education, Prescription Opioid Use. Follow up: Private Physician; When: 2 - 3 days; Reason: Recheck today's complaints, Continuance of care, Re-evaluation by your physician. Problem is new. Symptoms have improved. juanito 00:43 00:30 04/10/2019 00:14 Discharged to Home. Impression: Urinary tract infection, site jd3 not specified; Abdominal tenderness. Condition is Stable. Discharge Instructions: Dysuria, Urinary Tract Infection, Adult, Urinary Tract Infection, Adult, [id number]. Prescriptions for Pyridium 200 mg Oral Tablet - take 1 tablet by ORAL route every 8 hours for 3 days; 9 tablet, Cipro 500 mg Oral Tablet - take 1 tablet by ORAL route every 12 hours for 7 days; 14 tablet. and Forms are Medication Reconciliation Form, Thank You Letter, Antibiotic Education, Prescription Opioid Use, Work release form. Follow up: Private Physician; When: 2 - 3 days; Reason: Recheck today's complaints, Continuance of care, Re-evaluation by your physician. Problem is new. Symptoms have improved. jd3
[2019-04-10 01:28] VITALS: TEMP 97.2
[2019-04-10 01:29] VITALS: O2SAT 99
[2019-04-10 01:31] VITALS: BP 121/53
--- NOTE | 2019-04-13 15:26 | RAD REPORT ---
EXAM DESCRIPTION: CT - Stone Protocol - 04/10/2019 6:17 am CLINICAL HISTORY: The patient is 68 years old and is Female; ABD PAIN TECHNIQUE: Axial computed tomography images of the abdomen and pelvis without intravenous contrast. Sagittal and coronal reformatted images were created and reviewed. This CT exam was performed usi ng one or more of the following dose reduction techniques: automated exposure control, adjustment o f the mA and/or kV according to patient size, and/or use of iterative reconstruction technique. COMPARISON: No relevant prior studies available. FINDINGS: LUNG BASES: Minimal dependent densities in the lung bases are present. ABDOMEN: LIVER: Homogeneous without focal mass. GALLBLADDER AND BILE DUCTS: The gallbladder is contracted. PANCREAS: Unremarkable. No ductal dilation. SPLEEN: Unremarkable. ADRENALS: Unremarkable. No mass. KIDNEYS AND URETERS: A hyperdense 1.2 cm left renal cyst is present. No follow-up imaging is rec ommended. No obstructing renal or ureteral calculus seen. No hydronephrosis or hydroureter of eithe r kidney is noted. STOMACH AND BOWEL: The stomach is distended with food contents. The small bowel is normal in nicolette iber. A moderate amount stool is present throughout colon. There is no mucosal thickening or evidence of bowel obstruction. PELVIS: APPENDIX: The appendix is surgically absent. BLADDER: Unremarkable. No stones. REPRODUCTIVE: Unremarkable as visualized. ABDOMEN and PELVIS: INTRAPERITONEAL SPACE: Unremarkable. No free air. No significant fluid collection. BONES/JOINTS: Minimal degenerative changes spine is present. SOFT TISSUES: The soft tissues are normal. VASCULATURE: Unremarkable. No abdominal aortic aneurysm. LYMPH NODES: Unremarkable. No enlarged lymph nodes. IMPRESSION: No acute findings on this noncontrasted CT of the abdomen and pelvis to explain the manny ent's symptoms. Electronically signed by: Hazel Benson MD 04/09/2019 11:04 PM SAMPLE WRAPPER Due to temporary technical issues with the PACS/Fluency reporting system, reports are being signed by the in house radiologist as a courtesy to ensure prompt reporting. The interpreting radiologist is f ully responsible for the content of the report.
== END 2019-04-10 00:43 | disposition home or self-care (01) ==
LOC: ER 21:29
DX: N39.0 Urinary tract infection, site not specified (principal); Z88.0 Allergy status to penicillin; Z88.5 Allergy status to narcotic agent
CPT/HCPCS: 96365; 87088; 85025; 87086; 80048; 36415; 80076; 87077; 87186; 81003; 83690; 76377; 74176; 99284; J0696; J7030

== ENCOUNTER 2021-08-04 12:43 | Emergency (ER) | payer OTHER ==
--- OUTSIDE RECORDS SUMMARY | 2021-08-04 12:45 | XMS REPORT | Continuity of Care Document ---
:1950 Author Organization [facility] t Address [address] [place] [address] Care Team Providers Name Role Phone Eber ALARCON Primary Care Physician Unavailable Honey Attending Clinician Unavailable RADHA, Eber Attending Clinician Unavailable ADEN HERRON Attending Clinician Unavailable Nurse, Pob Immunization Attending Clinician Unavailable Aden Herron DO Attending Clinician Eber LE Attending Clinician Unavailable Lissette VILLASENOR Attending Clinician Unavailable Eber ALARCON Attending Clinician Unavailable Payers Payer Name Policy Type Policy Number Effective Date Expiration Date S ource MEDICARE PART A [id number] 2016 \T\ B 00:00:00 Problems Condition Condition Condition Status Onset Resolution Last Treating Co mments Source Name Details Category Date Date Treatment Clinician Date No known No known Disease Unive rs active active ity of problems problems [facility] Allergies, Adverse Reactions, Alerts Allergy Allergy Status Severity Reaction(s) Onset Inactive Treating Comm ents Source Name Type Date Date Clinician CODEINE DRUG Active N/V 2020- Univers INGREDI 0-06 ity of 00:00: [place] 00 [facility] Branch PENICILL Drug Active N/V 2020-1 Univers INS Class 0-06 ity of 00:00: [place] 00 Medical Branch Codeine Propensi Active Nausea 2020- Univers ty to and/or 0-06 ity of adverse Vomiting 00:00: [place] reaction 00 Medical s [place]im[place] Penicill Propensi Active Nausea 2020- Univer s ins ty to and/or 0-06 ity of adverse Vomiting 00:00: [place] reaction 00 Medical s [place] NO KNOWN Drug Active Univers ALLERGIE Class ity of S [place] [facility] Social History Social Habit Start Date Stop Date Quantity Comments Source Alcohol intake 2020-03-08 2020-03-08 Current drinker Unive rsity of 00:00:00 00:00:00 of alcohol [place] [facility] (finding) Branch Sex Ass[birth year] Universit y of 00:00:00 00:00:00 [facility] Branch Smoking Status Start Date Stop Date Source Never smoker [facility] Medications Ordered Filled Start Stop Current Ordering Indication Dosage Frequency Signature Comments Components Source Medication Medication Date Date Medication? Clinician (SIG) Name Name cranberry 2019-05 Yes Take by Univ ers fruit 0-06 mouth. ity of concentrate 11:02: [place] (AZO 28 Medical CRANBERRY Branch ORAL) phenazopyri 2019-05 Yes Take by Un doris dine HCl 0-06 mouth. ity of (AZO ORAL) 10:18: [place] 15 [facility] Branch Immunizations Ordered Filled Immunization Date Status Comments Sourc e Immunization Name Name SARS-COV-2 COVID-19 2021-03-19 Completed Unive rsity of MODERNA BOOSTER 00:00:00 [facility] VACCINE Branch SARS-COV-2 COVID-19 2020-07-10 Completed Unive rsity of MODERNA VACCINE 00:00:00 [facility] ical Branch SARS-COV-2 COVID-19 2020-06-12 Completed Unive rsity of MODERNA VACCINE 00:00:00 [facility] Procedures Procedure Date / Time Performed Performing Clinician Antonette restrepo SARS-COV-2 COVID-19 2021-03-19 19:34:22 Doctor Unassigned, No Un i[facility] [place] VACCINE Name [facility] BOOSTER,0.25ML,IM (MODERNA) Encounters Start End Encounter Admission Attending Care Care Encounter Source Date/Time Date/Time Type Type Clinicians Facility Department ID 2021-05-30 Out[facility] Honey[facility] [id number] 11:16:46 Elza [id number] Dereje - Jacky bowling Outpati ent Clinics 2021-08-08 2021-08-08 Outpatient Arely GARCIA [facility] [id number] Univers 08:00:00 08:00:00 CLAU [id number] ity of [facility] 2021-03-19 2021-03-19 Outpatient Arely HERRON [facility] [id number] Univers 13:50:00 13:08:54 BOBY gabino [facility] 2021-03-19 2021-03-19 Imm/Inj Nurse, Adc Pob Immunization [facility] [id number] Univers 13:08:45 13:08:54 Visit Boby HerronJEY [id number] [facility] [id number] Cait BLAKELY [id number] Ne dical NAL [address] [place] [address] 2020-09-06 2020-09-06 Outpatient Arely LE [facility] [id number] Univers 10:30:00 10:30:00 BRANDT [id number] [facility] 2020-09-06 2020-09-06 Outpatient Arely LE [facility] [id number] Univers 10:30:00 10:30:00 BRANDT [facility] 2020-07-10 2020-07-10 Outpatient Arely VILLASENOR [facility] [id number] Univers 08:10:00 08:10:00 HUNTER [facility] 2020-06-13 2020-06-13 Outpatient Arely VILLASENOR [facility] [id number] Univers 16:10:00 16:10:00 HUNTER [id number] [facility] 2020-06-13 2020-06-13 Outpatient Arely VILLASENOR [facility] [id number] Univers 16:10:00 16:10:00 HUNTER [facility] 2020-06-12 2020-06-12 Outpatient Arely VILLASENOR [facility] [id number] Univers 14:20:00 14:20:00 HUNTER [id number] [facility] 2020-03-10 2020-03-10 Outpatient Arely ALARCON [facility] [id number] Univers 09:00:00 09:00:00 WONDIFUL [id number] ity o f [facility] 2020-03-10 2020-03-10 Outpatient Arely ALARCON [facility] [id number] Univers 09:00:00 09:00:00 WONDIFUL ity o f [facility] 2020-03-08 2020-03-08 Outpatient Arely LE [facility] [id number] Univers 10:30:00 10:30:00 BRANDT [id number] [facility] 2020-03-08 2020-03-08 Outpatient Arely [facility] [id number] Univers 10:30:00 10:30:00 BRANDT [facility] 2020-02-08 2020-02-08 Outpatient Arely [facility] [id number] Univers 10:00:00 10:00:00 [facility] Results This patient has no known results.
--- NOTE | 2021-08-04 13:32 | RAD REPORT ---
EXAM DESCRIPTION: RAD - Knee Left 3 View - 08/04/2021 1:17 pm CLINICAL HISTORY: PAIN COMPARISON: No comparisons FINDINGS: No fracture, dislocation or periosteal reaction.No joint effusion seen. No joint space jazmín rowing. No soft tissue abnormality. IMPRESSION: Negative left knee. Clinical concerns for internal derangement or occult bony injury could be further assessed with MR im aging.
--- NOTE | 2021-08-04 14:06 | RAD REPORT ---
EXAM DESCRIPTION: US - Extremity Venous Uni Ltd - 08/04/2021 1:55 pm CLINICAL HISTORY: PAIN COMPARISON: None. TECHNIQUE: Real-time sonographic evaluation of the left lower extremity deep venous system was perfo rmed. FINDINGS: Normal compressibility, flow augmentation, phasic flow and spontaneous flow are identified in the rig ht lower extremity common femoral, superficial femoral, popliteal and posterior tibial veins. The mid to distal superficial femoral vein was more difficult visualize but is felt be clear of thrombus. No intraluminal filling defects seen. No popliteal fossa cyst. No soft tissue hematoma or other soft tissue abnormality. IMPRESSION: No DVT in the left lower extremity. No popliteal fossa cyst, soft tissue hematoma or other soft tissue abnormality identifiable.
--- NOTE | 2021-08-04 14:10 | ER ---
Nurse's Notes [facility] Name: Fiona Sandoval Age: 70 yrs Sex: Female : 1950 Arrival Date: 08/04/2021 Time: 12:46 Bed 15 Private MD: Diagnosis: Pain in right knee Presentation: 08/04 12:58 Chief complaint: Patient states: Pain behind L knee that began 1 month ago. Pt reports ss that the pain is worse when ambulating. Coronavirus screen: Client denies travel out of the [place] in the last 14 days. Ebola Screen: Patient denies exposure to infectious person. Patient denies travel to an Ebola-affected area in the 21 days before illness onset. Initial Sepsis Screen: Does the patient meet any 2 criteria? No. Patient's initial sepsis screen is negative. Does the patient have a suspected source of infection? No. Patient's initial sepsis screen is negative. Risk Assessment: Do you want to hurt yourself or someone else? Patient reports no desire to harm self or others. Onset of symptoms was July 04, 2021. 12:58 Method Of Arrival: Wheelchair ss 12:58 Acuity: CONSTANTIN 4 ss Historical: - Allergies: 13:00 PENICILLINS; "because sister is"; ss 13:00 Codeine; "nausea"; ss - PMHx: 13:00 Hyperlipidemia; ss - Immunization history:: Client reports receiving the 2nd dose of the Covid vaccine. - Social history:: Smoking status: Patient denies any tobacco usage or history of. Screenin:10 Abuse screen: Denies threats or abuse. Nutritional screening: No deficits noted. aa5 Tuberculosis screening: No symptoms or risk factors identified. Fall Risk None identified. Assessment: 13:10 General: Appears comfortable, Behavior is calm, cooperative. Pain: Complains of pain in aa5 posterior aspect of left knee Pain currently is 10 out of 10 on a pain scale. Quality of pain is described as sharp, shooting, Pain began 1 month ago Is continuous, Aggravated by weight bearing. Neuro: Level of Consciousness is awake, alert, obeys commands, Oriented to person, place, time, situation. Cardiovascular: Capillary refill < 3 seconds is brisk in bilateral fingers Patient's skin is warm and dry. Respiratory: Airway is patent Respiratory effort is even, unlabored, Respiratory pattern is regular, symmetrical. GI: No signs and/or symptoms were reported involving the gastrointestinal system. : No signs and/or symptoms were reported regarding the genitourinary system. EENT: No signs and/or symptoms were reported regarding the EENT system. Derm: Skin is pink, warm \\T\\ dry. Musculoskeletal: Range of motion: intact in all extremities. 13:50 Reassessment: US completed by Singspiel. . aa5 14:25 Reassessment: Patient is alert, oriented x 3, equal unlabored respirations, skin aa5 warm/dry/pink. Vital Signs: 12:58 Resp 16; Weight 84.37 kg; Height 5 ft. 3 in. (160.02 cm); Pain 10/10; ss 13:05 BP 127 / 83; Pulse 78; Temp 98.8(TE); ss 14:15 BP 126 / 84; Pulse 79; Resp 18 S; Pulse Ox 99% on R/A; aa5 12:58 Body Mass Index 32.95 (84.37 kg, 160.02 cm) ED Course: 12:46 Patient arrived in ED. am2 12:54 Ny Dorsey, [facility]S [facility] kb 12:54 Tez Brenner MD is Attending Physician. kb 12:57 Daisy Field, FATUMA is Primary Nurse. aa5 13:00 Triage completed. ss 13:00 Arm band placed on right wrist. ss 13:10 Patient has correct armband on for positive identification. Placed in gown. Bed in low aa5 position. Call light in reach. Side rails up X2. Adult w/ patient. 13:19 Knee Left 3 View XRAY In Process Unspecified. EDMS 13:46 No provider procedures requiring assistance completed. aa5 13:57 US Extremity Venous Unilateral Ltd In Process Unspecified. EDMS 14:25 Patient did not have IV access during this emergency room visit. aa5 Administered Medications: No medications were administered Outcome: 14:09 Discharge ordered by . kb 14:25 Discharged to home via wheelchair, with family. aa5 14:25 Condition: stable 14:25 Discharge instructions given to patient, Instructed on discharge instructions, follow up and referral plans. medication usage, Demonstrated understanding of instructions, follow-up care, medications. 14:26 Patient left the ED. aa5 Signatures: Dispatcher [employer] EDMS Ralph Dorseyistin, ASSEMBLER FLEXIBLE LEADS-C ASSEMBLER FLEXIBLE LEADS-Ckb Daisy Field RN RN aa5 Angela Miller RN RN ss Agustina Juarez am2 Corrections: (The following items were deleted from the chart) 13:01 13:00 Allergies: codien; [facility]
--- NOTE | 2021-08-04 14:10 | EDPHYS ---
Physician Documentation [facility] Name: Fiona Sandoval Age: 70 yrs Sex: Female : 1950 Arrival Date: 08/04/2021 Time: 12:46 Bed 15 Private MD: ED Physician Tez Brenner HPI: 08/04 12:58 This 70 yrs old Female presents to ER via Unassigned with complaints of Leg kb Pain. 12:58 The patient presents with pain, tenderness. The complaints affect the posterior aspect kb of left knee. Context: The problem was sustained at home, resulted from an unknown cause, the patient can fully bear weight, the patient is able to ambulate, Problem is a result from a previous injury: No. Onset: The symptoms/episode began/occurred 1 month(s) ago, and became worse. Modifying factors: The symptoms are alleviated by nothing. the symptoms are aggravated by movement, weight bearing. Associated signs and symptoms: The patient has no apparent associated signs or symptoms. Treatment prior to arrival includes: no previous treatment. Severity of symptoms: At their worst the symptoms were moderate, in the emergency department the symptoms are unchanged. The patient has not experienced similar symptoms in the past. The patient has not recently seen a physician. Historical: - Allergies: 13:00 PENICILLINS; "because sister is"; ss 13:00 Codeine; "nausea"; ss - PMHx: 13:00 Hyperlipidemia; ss - Immunization history:: Client reports receiving the 2nd dose of the Covid vaccine. - Social history:: Smoking status: Patient denies any tobacco usage or history of. ROS: 12:58 Constitutional: Negative for fever, chills, and weight loss. kb 12:58 MS/extremity: Positive for pain, tenderness, of the posterior aspect of left knee. 12:58 All other systems are negative. Exam: 12:58 Constitutional: This is a well developed, well nourished patient who is awake, alert, kb and in no acute distress. Head/Face: Normocephalic, atraumatic. ENT: Moist Mucous membranes Respiratory: Respirations even and unlabored. No increased work of breathing. Talking in full sentences Skin: Warm, dry with normal turgor. Normal color. Neuro: Awake and alert, GCS 15, oriented to person, place, time, and situation. Moves all extremities. Normal gait. Psych: Awake, alert, with orientation to person, place and time. Behavior, mood, and affect are within normal limits. 12:58 Musculoskeletal/extremity: Extremities: grossly normal except: noted in the posterior aspect of left knee: pain, tenderness, ROM: intact in all extremities, Circulation is intact in all extremities. Sensation intact. Weight bearing: able to fully bear weight. Vital Signs: 12:58 Resp 16; Weight 84.37 kg; Height 5 ft. 3 in. (160.02 cm); Pain 10/10; ss 13:05 BP 127 / 83; Pulse 78; Temp 98.8(TE); ss 14:15 BP 126 / 84; Pulse 79; Resp 18 S; Pulse Ox 99% on R/A; aa5 12:58 Body Mass Index 32.95 (84.37 kg, 160.02 cm) ss MDM: 12:54 Patient medically screened. kb 12:57 Data reviewed: vital signs, nurses notes. Data interpreted: Pulse oximetry: on room air kb is 100 %. Interpretation: normal. 14:08 Counseling: I had a detailed discussion with the patient and/or guardian regarding: the kb historical points, exam findings, and any diagnostic results supporting the discharge/admit diagnosis, radiology results, the need for outpatient follow up, a family practitioner, to return to the emergency department if symptoms worsen or persist or if there are any questions or concerns that arise at home. 04 12:57 Order name: US Extremity Venous Unilateral Ltd; Complete Time: 14:07 kb 08/04 12:57 Order name: Knee Left 3 View XRAY; Complete Time: 13:36 kb Administered Medications: No medications were administered Disposition: 16:22 Co-signature as Attending Physician, Tez Brenner MD. rn Disposition Summary: 08/04/21 14:09 Discharge Ordered Location: Home kb Condition: Stable kb Diagnosis - Pain in right knee kb Followup: kb - With: Emergency Department - When: As needed - Reason: Worsening of condition Followup: kb - With: Private Physician - When: 2 - 3 days - Reason: Recheck today's complaints, Continuance of care, Re-evaluation by your physician Discharge Instructions: - Discharge Summary Sheet kb - Musculoskeletal Pain kb - Acute Knee Pain, Adult, [id number] kb Forms: - Medication Reconciliation Form kb - Thank You Letter kb - Antibiotic Education kb - Prescription Opioid Use kb Prescriptions: - Diclofenac Sodium 75 mg Oral tablet,delayed release (DR/EC) - take 1 tablet by ORAL route 2 times per day As needed; 30 tablet; Refills: 0, kb Product Selection Permitted Signatures: Dispatcher [employer] EDNy Amezquita, BO-C BO-Tez Gunderson MD MD rn Smirch, Shelby, RN RN ss Corrections: (The following items were deleted from the chart) 13:01 13:00 Allergies: codien; ss ss 14:09 14:09 Pain in right lower leg kb kb
[2021-08-04 14:31] VITALS: BP 127/83; TEMP 98.8
== END 2021-08-04 14:26 | disposition home or self-care (01) ==
LOC: ER 12:43
DX: M25.562 Pain in left knee (principal); E78.5 Hyperlipidemia, unspecified; Z88.0 Allergy status to penicillin; Z88.5 Allergy status to narcotic agent
CPT/HCPCS: 93971; 99283

== ENCOUNTER 2022-01-18 15:46 | Emergency (ER) | payer OTHER ==
--- OUTSIDE RECORDS SUMMARY | 2022-01-18 15:50 | XMS REPORT | Continuity of Care Document ---
:1950 Author Organization [facility] t Address [address] [place] [address] Care Team Providers Name Role Phone Doris Álvarez Primary Care Physician Elza Méndez Attending Clinician Unavailable Doctor Unassigned, Laird Attending Clinician Unavailable Vaccine, [facility] Attending Clinician Unavailable Boby Herron DO Attending Clinician BOBY HERRON Attending Clinician Unavailable Doris Álvarez Attending Clinician Lab, Ang - Db Attending Clinician Unavailable DORIS GARCIA Attending Clinician Unavailable Payers Payer Name Policy Type Policy Number Effective Date Expiration Date S ource Problems Condition Condition Condition Status Onset Resolution Last Treating Co mments Source Name Details Category Date Date Treatment Clinician Date 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 00:00: [address] Prediabete Prediabete Disease Active U nivers s s 4-07 ity of 00:00: [address] Allergies, Adverse Reactions, Alerts Allergy Allergy Status Severity Reaction(s) Onset Inactive Treating Comm ents Source Name Type Date Date Clinician Penicill Propensi Active Nausea 2019-05 Univer s ins ty to and/or 0-06 ity of adverse Vomiting 00:00: [place] reaction 00 Medical s Branch CODEINE DRUG Active N/V 2019-05 Univers INGREDI 0-06 ity of 00:00: [place] 00 Medical Branch PENICILL Drug Active N/V 2019-05 Univers INS Class 0-06 ity of 00:00: [place] 00 Medical Branch Codeine Propensi Active Nausea 2019-05 Univers ty to and/or 0-06 ity of adverse Vomiting 00:00: [place] reaction 00 Medical s Branch Social History Social Habit Start Date Stop Date Quantity Comments Source Exposure to 2021-08-12 2021-08-22 Not sure [facility] SARS-CoV-2 00:00:00 09:32:00 [facility] (event) [place] Alcohol intake 2021-08-22 2021-08-22 .86 /d [facility] 00:00:00 00:00:00 [facility] Tobacco use and 2021-08-08 2021-08-08 Smokeless tobacco Un iversity of exposure 00:00:00 00:00:00 non-user [facility] Sex Ass[birth year] At [birth year] Universit y of 00:00:00 00:00:00 [facility] Smoking Status Start Date Stop Date Source Never smoked tobacco [facility] Medications Ordered Filled Start Stop Current Ordering Indication Dosage Frequency Signature Comments Components Source Medication Medication Date Date Medication? Clinician (SIG) Name Name methylPREDN Yes [id number] Take by Univers ISolone 4-20 mouth ity of (MEDROL, 00:00: SEE-INSTRU Richard as LEELEE,) 4 mg 00 CTIONS. Medica l tablets follow Branch package directions . Take with food. Avoid nsaids (advil). methylPREDN Yes [id number] Take by Univers ISolone 4-20 mouth ity of (MEDROL, 00:00: SEE-INSTRU Richard as LEELEE,) 4 mg 00 CTIONS. Medica l tablets follow Branch package directions . Take with food. Avoid nsaids (advil). methylPREDN Yes [id number] Take by Univers ISolone 4-20 mouth ity of (MEDROL, 00:00: SEE-INSTRU Richard as LEELEE,) 4 mg 00 CTIONS. Medica l tablets follow Branch package directions . Take with food. Avoid nsaids (advil). methylPREDN 2022-0 Yes [id number] Take by Univers ISolone 4-20 mouth ity of (MEDROL, 00:00: SEE-INSTRU Richard as LEELEE,) 4 mg 00 CTIONS. Medica l tablets follow Branch package directions . Take with food. Avoid nsaids (advil). methylPREDN 2022-0 Yes [id number] Take by Univers ISolone 4-20 mouth ity of (MEDROL, 00:00: SEE-INSTRU Richard as LEELEE,) 4 mg 00 CTIONS. Medica l tablets follow Branch package directions . Take with food. Avoid nsaids (advil). methylPREDN 2022-0 Yes [id number] Take by Univers ISolone 4-20 mouth ity of (MEDROL, 00:00: SEE-INSTRU Richard as LEELEE,) 4 mg 00 CTIONS. Medica l tablets follow Branch package directions . Take with food. Avoid nsaids (advil). methylPREDN 2022-0 Yes [id number] Take by Univers ISolone 4-20 mouth ity of (MEDROL, 00:00: SEE-INSTRU Richard as LEELEE,) 4 mg 00 CTIONS. Medica l tablets follow Branch package directions . Take with food. Avoid nsaids (advil). methylPREDN 2022-0 Yes [id number] Take by Univers ISolone 4-20 mouth ity of (MEDROL, 00:00: SEE-INSTRU Richard as LEELEE,) 4 mg 00 CTIONS. Medica l tablets follow Branch package directions . Take with food. Avoid nsaids (advil). phenazopyri 2022-0 Yes Take by Uni vers dine HCl 4-06 mouth. ity of (AZO ORAL) 08:32: [place] [address] Medical Branch cranberry 2022-0 Yes Take by Unive rs fruit 4-06 mouth. ity of concentrate 08:32: [place] (AZO 45 Medical CRANBERRY Branch ORAL) phenazopyri 2022-0 Yes Take by Uni vers dine HCl 4-06 mouth. ity of (AZO ORAL) 08:32: [place] 45 Medical Branch cranberry 2022-0 Yes Take by Unive rs fruit 4-06 mouth. ity of concentrate 08:32: [place] (AZO 45 Medical CRANBERRY Branch ORAL) phenazopyri 2022-0 Yes Take by Uni vers dine HCl 4-06 mouth. ity of (AZO ORAL) 08:32: [place] [address] Medical Branch cranberry 2021-0 Yes Take by Unive rs fruit 4-06 mouth. ity of concentrate 08:32: [place] (AZO 45 Medical CRANBERRY Branch ORAL) phenazopyri 2021-0 Yes Take by Uni vers dine HCl 4-06 mouth. ity of (AZO ORAL) 08:32: [place] [address] Medical Branch cranberry 2021-0 Yes Take by Unive rs fruit 4-06 mouth. ity of concentrate 08:32: [place] (AZO 45 Medical CRANBERRY Branch ORAL) phenazopyri 2021-0 Yes Take by Uni vers dine HCl 4-06 mouth. ity of (AZO ORAL) 08:32: [place] [address] Medical Branch cranberry 2021-0 Yes Take by Unive rs fruit 4-06 mouth. ity of concentrate 08:32: [place] ([facility] 45 Medical CRANBERRY Branch ORAL) phenazopyri 2021-0 Yes Take by Uni vers dine HCl 4-06 mouth. ity of (AZO ORAL) 08:32: [place] [address] Medical Branch cranberry 2021-0 Yes Take by Unive rs fruit 4-06 mouth. ity of concentrate 08:32: [place] (AZO 45 Medical CRANBERRY Branch ORAL) phenazopyri 2021-0 Yes Take by Uni vers dine HCl 4-06 mouth. ity of (AZO ORAL) 08:32: [place] [address] Medical Branch cranberry 2021-0 Yes Take by Unive rs fruit 4-06 mouth. ity of concentrate 08:32: [place] (AZO 45 Medical CRANBERRY Branch ORAL) phenazopyri 2021-0 Yes Take by Uni vers dine HCl 4-06 mouth. ity of (AZO ORAL) 08:32: [place] [address] Medical Branch cranberry 2021-0 Yes Take by Unive rs fruit 4-06 mouth. ity of concentrate 08:32: [place] (AZO 45 Medical CRANBERRY Branch ORAL) diclofenac 2-0 Yes TAKE 1 Unive rs 75 mg EC 4-02 TABLET BY ity of tablet 00:00: MOUTH 00 TWICE Medical DAILY Branch NEEDED diclofenac 2022-0 Yes TAKE 1 Unive rs 75 mg EC 4-02 TABLET BY ity of tablet 00:00: MOUTH 00 TWICE Medical DAILY Branch NEEDED diclofenac 2022-0 Yes TAKE 1 Unive rs 75 mg EC 4-02 TABLET BY ity of tablet 00:00: MOUTH [place] 00 TWICE Medical DAILY Branch NEEDED diclofenac Yes TAKE 1 Unive rs 75 mg EC 4-02 TABLET BY ity of tablet 00:00: MOUTH [place] 00 TWICE Medical DAILY Branch NEEDED diclofenac Yes TAKE 1 Unive rs 75 mg EC 4-02 TABLET BY ity of tablet 00:00: MOUTH [place] 00 TWICE Medical DAILY Branch NEEDED diclofenac Yes TAKE 1 Unive rs 75 mg EC 4-02 TABLET BY ity of tablet 00:00: MOUTH [place] 00 TWICE Medical DAILY Branch NEEDED diclofenac Yes TAKE 1 Unive rs 75 mg EC 4-02 TABLET BY ity of tablet 00:00: MOUTH [place] TWICE Medical DAILY Branch NEEDED diclofenac Yes TAKE 1 Unive rs 75 mg EC 4-02 TABLET BY ity of tablet 00:00: MOUTH [place] 00 TWICE Medical DAILY Branch NEEDED Immunizations Ordered Filled Immunization Date Status Comments [facility] e Immunization Name Name SARS-COV-2 COVID-19 2021-09-18 Completed Unive rsity of MODERNA 0.25ML 00:00:00 [place] Medi nicolette BOOSTER VACCINE Branch SARS-COV-2 COVID-19 2021-09-18 Completed Unive rsity of MODERNA 0.25ML 00:00:00 [place] Medi nicolette BOOSTER VACCINE Branch SARS-COV-2 COVID-19 2021-03-19 Completed Unive rsity of MODERNA BOOSTER 00:00:00 [place] Med ical VACCINE Branch SARS-COV-2 COVID-19 2021-03-19 Completed Unive rsity of MODERNA BOOSTER 00:00:00 [place] Med ical VACCINE Branch SARS-COV-2 COVID-19 2021-03-19 Completed Unive rsity of MODERNA BOOSTER 00:00:00 [place] Med ical VACCINE Branch SARS-COV-2 COVID-19 2021-03-19 Completed Unive rsity of MODERNA BOOSTER 00:00:00 [place] Med ical VACCINE Branch SARS-COV-2 COVID-19 2021-03-19 Completed Unive rsity of MODERNA 0.25ML 00:00:00 [place] Medi nicolette BOOSTER VACCINE Branch SARS-COV-2 COVID-19 2021-03-19 Completed Unive rsity of MODERNA 0.25ML 00:00:00 [place] Medi nicolette BOOSTER VACCINE Branch SARS-COV-2 COVID-19 2021-03-19 Completed Unive rsity of MODERNA 0.25ML 00:00:00 [place] Medi nicolette BOOSTER VACCINE Branch SARS-COV-2 COVID-19 2021-03-19 Completed Unive rsity of MODERNA 0.25ML 00:00:00 [place] Medi nicolette BOOSTER VACCINE Branch SARS-COV-2 COVID-19 2020-07-10 Completed Unive rsity of MODERNA VACCINE 00:00:00 [place] Med ical Branch SARS-COV-2 COVID-19 2020-07-10 Completed Unive rsity of MODERNA VACCINE 00:00:00 [place] Med ical Branch SARS-COV-2 COVID-19 2020-07-10 Completed Unive rsity of MODERNA VACCINE 00:00:00 [place] Med ical Branch SARS-COV-2 COVID-19 2020-07-10 Completed Unive rsity of MODERNA VACCINE 00:00:00 [place] Med ical Branch SARS-COV-2 COVID-19 2020-07-10 Completed Unive rsity of MODERNA VACCINE 00:00:00 [place] Med ical Branch SARS-COV-2 COVID-19 2020-07-10 Completed Unive rsity of MODERNA VACCINE 00:00:00 [place] Med ical Branch SARS-COV-2 COVID-19 2020-07-10 Completed Unive rsity of MODERNA VACCINE 00:00:00 [place] Med ical Branch SARS-COV-2 COVID-19 2020-07-10 Completed Unive rsity of MODERNA VACCINE 00:00:00 [place] Med ical Branch SARS-COV-2 COVID-19 2020-06-12 Completed Unive rsity of MODERNA VACCINE 00:00:00 [place] Med ical Branch SARS-COV-2 COVID-19 2020-06-12 Completed Unive rsity of MODERNA VACCINE 00:00:00 [place] Med ical Branch SARS-COV-2 COVID-19 2020-06-12 Completed Unive rsity of MODERNA VACCINE 00:00:00 [place] Med ical Branch SARS-COV-2 COVID-19 2020-06-12 Completed Unive rsity of MODERNA VACCINE 00:00:00 [place] Med ical Branch SARS-COV-2 COVID-19 2020-06-12 Completed Unive rsity of MODERNA VACCINE 00:00:00 [facility] Branch SARS-COV-2 COVID-19 2020-06-12 Completed Unive rsity of MODERNA VACCINE 00:00:00 [facility] Branch SARS-COV-2 COVID-19 2020-06-12 Completed Unive rsity of MODERNA VACCINE 00:00:00 [facility] Branch SARS-COV-2 COVID-19 2020-06-12 Completed Unive rsity of MODERNA VACCINE 00:00:00 [facility] Vital Signs Vital Name Observation Time Observation Value Comments Source Systolic blood 2021-08-22 14:43:00 136 mm[Hg] Univer sity of pressure [facility] Diastolic blood 2021-08-22 14:43:00 79 mm[Hg] Unive rsity of pressure [facility] Heart rate 2021-08-22 14:42:00 87 /min [facility] Body temperature 2021-08-22 14:42:00 36.89 [place] Univ ersity of [facility] Body height 2021-08-22 14:42:00 160 cm [facility] Body weight 2021-08-22 14:42:00 86.773 kg [facility] BMI 2021-08-22 14:42:00 33.89 kg/m2 [facility] Oxygen saturation in 2021-08-22 14:42:00 98 /min [facility] blood by [facility] Pulse oximetry Branch Procedures Procedure Date / Time Performed Performing Clinician [facility] e EXTERNAL PROVIDER 2021-12-17 05:01:00 Doctor Unassigned, No Univ ersity of [place] RECORDS Name Medical Branch SARS-COV-2 COVID-19 2021-09-18 19:39:18 Doctor Unassigned, No Un iversity of [place] VACCINE Name Medical Branch BOOSTER,0.25ML,IM (MODERNA) Encounters Start End Encounter Admission Attending Care Care Encounter Source Date/Time Date/Time Type Type Clinicians Facility Department ID 2021-09-12 Outpatient BIA Méndez [facility] [id number] Common 07:51:01 Elza [facility] 2021-09-11 Outpatient Honey [facility] [id number] Common 10:40:01 Elza [facility] 2021-09-04 Outpatient BIA Méndez [facility] [id number] Common 10:05:02 Elza [facility] 2021-05-30 Outpatient Honey [facility] [id number] Common 11:16:46 Elza [address] [facility] 2021-12-17 2021-12-17 Orders Doctor LOGAN [id number] Univers 00:00:00 00:00:00 Only Unassigned, ANNALISA [id number] ity of [facility] [id number] Richard as [phone] [address] 2021-09-18 2021-09-18 Imm/Inj Vaccine, [facility] Family Medicine [facility] [id number] Univers 14:30:00 14:40:00 Visit Boby Herron [id number] .10 ity [facility] [id number] [place] PROF[place] [id number] Pr polly [place] [facility] Branch [facility] 2021-09-18 2021-09-18 Outpatient R [facility] [id number] Univers 14:30:00 14:30:00 [id number] ity [facility] 2021-09-18 2021-09-18 Outpatient R JANNET [facility] [id number] Univers 14:30:00 14:30:00 BOBY itgabino [facility] 2021-09-11 2021-09-11 [facility] [id number] Common 00:00:00 00:00:00 [facility] 2021-08-29 2021-08-29 Telephone Anali [facility] [id number] Univers 00:00:00 00:00:00 Doris TURNER [id number] i ty of [place] [id number] Richard as MATHEW?BLEA [id number] Pr dical JACKIEEY 044 Branch [facility] 2021-08-27 2021-08-27 [facility] [id number] Univers 00:00:00 00:00:00 Doris A HEALTH [id number] i ty of [place] [id number] Richard as MATHEW?BLEA [id number] Pr polly DOGDE 044 [facility] 2021-08-23 2021-08-23 Telephone [facility] [id number] Univers 00:00:00 00:00:00 Doris A HEALTH [id number] i ty of [place] [id number] Richard as MATHEW?BLEA [id number] Pr polly DODGE 044 [facility] 2021-08-22 2021-08-22 Home Economist Lab, Ang - Db [facility] [id number] Univers 10:15:00 10:30:00 Visit AnaliAnkitDoris A HEALTH [id number] ity of [place] [id number] Richard as MATHEW?BLEA [id number] Pr polly DODGE 353 [facility] 2021-08-22 2021-08-22 Outpatient R [facility] [id number] Univers 10:15:00 10:15:00 [id number] [facility] [place] [facility] 2021-08-22 2021-08-22 Outpatient R [facility] [id number] Univers 10:15:00 10:15:00 [facility] 2021-08-22 [facility] [id number] Univers 09:30:00 10:00:00 Visit Doris Velázquez HEALTH [id number] i ty of [place] [id number] Richard as MATHEW?BLEA [id number] Pr dical DAR 044 [facility] Results This patient has no known results.
[2022-01-18 17:39] LABS: Absolute Lymphocytes (CBC) 1.9 K/uL (0.7-4.9); Hematocrit 40.6 % (36.0-45.0); Lymphocytes % 16.2 % (15.3-44.8); MCV 98.8 fL (80-100); MPV 9.3 fL (7.6-11.3); RBC Red Blood Cell Count 4.11 M/uL (3.86-4.86)
[2022-01-18] MEDS ORDERED: BISACODYL E.C. 5 MG TAB PO ONE (17:40)
[2022-01-18] MEDS ORDERED: FLEET ENEMA ADULT PR ONE ×2 (17:40→18:09)
[2022-01-18 17:57] LABS: Albumin 3.9 g/dL (3.4-5.0); Bilirubin Total 0.4 mg/dL (0.2-1.0); Potassium 3.9 mmol/L (3.5-5.1); Protein, Total 7.6 g/dL (6.4-8.2)
[2022-01-18] MEDS ORDERED: LACTULOSE 20 GM/30 ML UCUP ONE (18:08)
[2022-01-18] MEDS ORDERED: NA CHLORIDE 0.9% 500 ML ONE (18:08)
--- NOTE | 2022-01-18 21:18 | RAD REPORT ---
EXAM DESCRIPTION: CTAbdomen Pelvis W Contrast - 01/18/2022 9:05 pm CLINICAL HISTORY: Abdominal pain, acute, nonlocalized COMPARISON: [place] Protocol dated 04/09/2019 TECHNIQUE: CT of the abdomen and pelvis was performed. All CT scans are performed using dose optimization technique as appropriate and may include automated exposure control or mA/KV adjustment according to patient size. FINDINGS: Lower chest: No acute abnormality. Liver: Too small to characterize liver lesions which are likely benign. Biliary: No biliary ductal dilatation. Stomach: No significant focal abnormality. Duodenum: No significant focal abnormality. Pancreas: No significant abnormality. Spleen: No significant abnormality. Adrenal: No suspicious lesions. Kidney/ureter: No hydronephrosis. No renal calculi. Indeterminate left upper pole renal lesion measur ing 18 millimeters. This is unchanged in size since 04/09/2019 where the lesion appeared to represent a hemorrhagic cyst. Retroperitoneum: No retroperitoneal adenopathy. Vascular: No aneurysm. Bowel: Moderate stool in the rectum. No bowel obstruction. Appendectomy. Several air-fluid levels not ed in the proximal colon.. Peritoneum: No ascites or free air. Bladder: Grossly unremarkable. Reproductive: No adnexal masses. Bones: No acute fracture. Other: n/a IMPRESSION: Constipation and/or fecal impaction at the rectum. No bowel obstruction.
--- NOTE | 2022-01-18 22:34 | ER ---
Nurse's Notes [facility] Name: Fiona Sandoval Age: 71 yrs Sex: Female : 1950 Arrival Date: 01/18/2022 Time: 15:48 Bed 13 Private MD: Diagnosis: Abdominal pain, Generalized;Vomiting Presentation: 01/18 16:15 Chief complaint: Patient states: constipated, no BM for 2 days, took a probiotic and kr3 stool softener to help with no relief. Coronavirus screen: Vaccine status: Patient reports receiving the 2nd dose of the covid vaccine. Client denies travel out of the [place] in the last 14 days. Ebola Screen: Patient denies travel to an Ebola-affected area in the 21 days before illness onset. Initial Sepsis Screen: Does the patient meet any 2 criteria? No. Patient's initial sepsis screen is negative. Does the patient have a suspected source of infection? Yes: Acute abdominal pain. Risk Assessment: Do you want to hurt yourself or someone else? Patient reports no desire to harm self or others. Onset of symptoms was January 18, 2022. 16:15 Method Of Arrival: Ambulatory kr3 16:15 Acuity: CONSTANTIN 3 kr3 Triage Assessment: 16:21 General: Appears in no apparent distress. uncomfortable, Behavior is calm, cooperative, kr3 appropriate for age. Pain: Complains of pain in abdomen Pain currently is 9 out of 10 on a pain scale. GI: Reports bloating, constipation, nausea. Historical: - Allergies: 16:19 PENICILLINS; "because sister is"; kr3 16:19 Codeine; "nausea"; kr3 - PSHx: 16:19 section; Appendectomy; kr3 - Immunization history:: Adult Immunizations up to date. - Social history:: Smoking status: Patient denies any tobacco usage or history of. Screenin:06 Abuse screen: Denies threats or abuse. Denies injuries from another. Nutritional jg9 screening: No deficits noted. Tuberculosis screening: No symptoms or risk factors identified. Fall Risk None identified. Assessment: 18:00 Reassessment: No changes from previously documented assessment. Patient and/or family jg9 updated on plan of care and expected duration. Pain level reassessed. Patient is alert, oriented x 3, equal unlabored respirations, skin warm/dry/pink. Patient states symptoms have not improved. 18:32 Reassessment: patient sitting on bedside commode, reports she still feels like there is jg9 something stuck-will repeat fleet enema. 18:51 Reassessment: 2nd fleet performed. jg9 Vital Signs: 16:15 BP 129 / 79; Pulse 82; Resp 16; Temp 98.2(O); Pulse Ox 99% on R/A; Weight 86.18 kg; kr3 Height 5 ft. 2 in. (157.48 cm); Pain 9/10; 18:00 BP 143 / 60; Pulse 75; Resp 18 S; Pulse Ox 98% ; jg9 16:15 Body Mass Index 34.75 (86.18 kg, 157.48 cm) kr3 ED Course: 15:48 Patient arrived in ED. am2 16:19 Triage completed. kr3 16:19 Nicolas Blackwell MD is Attending Physician. [facility] 16:21 Arm band placed on right wrist. kr3 17:13 Carly Silva, FATUMA is Primary Nurse. jg9 17:26 Inserted saline lock: 22 gauge in left antecubital area, using aseptic technique. Blood jg9 collected. 17:45 Fleets enema given. Patient tolerated well patient denied any change in ABD jg9 discomfort/constipation-will repeat fleet in 30min. 18:06 Patient has correct armband on for positive identification. Bed in low position. Call jg9 light in reach. Side rails up X 1. 19:18 Attending Physician role handed off by Nicolas Blackwell MD [facility] 19:18 Dmitry Jonas MD is Attending Physician. [facility] 21:07 CT Abd/Pelvis - IV Contrast Only In Process Unspecified. EDMS Administered Medications: 17:45 Drug: Fleet Enema (sodium phosphate) 133 ml Route: RI; jg9 18:51 Follow up: Response: No adverse reaction; No change in condition jg9 17:47 Drug: Dulcolax (bisacodyl) Delayed Release Tablet 5 mg Route: PO; jg9 18:50 Follow up: Response: No adverse reaction; No change in condition jg9 17:47 Not Given (Other Intervention Used): Magnesium Citrate Liquid 300 ml PO once jg9 18:00 Drug: NS 0.9% 500 ml Route: IV; Rate: bolus; Site: left antecubital; jg9 18:50 Follow up: IV Status: Completed infusion; IV Intake: 500ml j9 18:00 Drug: Lactulose 20 grams Volume: 30 ml; Route: PO; jg9 18:50 Follow up: Response: No adverse reaction; No change in condition jg9 Intake: 18:50 IV: 500ml; Total: 500ml. jg9 Outcome: 22:33 Discharge ordered by MD. solomon 22:40 Patient left the ED. vc1 Signatures: Dispatcher [employer] EDUT Dmitry Jonas MD MD cha Rittger, Kevin, MD MD kdr Moreno, Amanda am2 Gilmore, Jennifer, RN RN jg9 Katheryn Samano RN RN vc1 Dominique Marie RN RN kr3
--- NOTE | 2022-01-18 22:34 | EDPHYS ---
Physician Documentation [facility] Name: Fiona Sandoval Age: 71 yrs Sex: Female : 1950 Arrival Date: 01/18/2022 Time: 15:48 Bed 13 Private MD: ED Physician Dmitry Jonas HPI: 01/18 18:13 This 71 yrs old Female presents to ER via Ambulatory with complaints of kdr Abdominal Pain. 18:13 The patient presents with abdominal pain that is diffuse, Her pain is minor in her kdr abdomen. Most of her pain is in her rectum. Onset: The symptoms/episode began/occurred gradually, 2 day(s) ago, Her last normal bowel movement was 2 days ago. The symptoms do not radiate. Associated signs and symptoms: none. The symptoms are described as achy, dull, vague. Modifying factors: The symptoms are alleviated by nothing, the symptoms are aggravated by nothing. Severity of pain: At its worst the pain was mild moderate just prior to arrival, in the emergency department the pain is unchanged. The patient has not experienced similar symptoms in the past. The patient has not recently seen a physician. Historical: - Allergies: 16:19 PENICILLINS; "because sister is"; kr3 16:19 Codeine; "nausea"; kr3 - PSHx: 16:19 section; Appendectomy; kr3 - Immunization history:: Adult Immunizations up to date. - Social history:: Smoking status: Patient denies any tobacco usage or history of. ROS: 18:13 Constitutional: Negative for fever, chills, and weight loss, Eyes: Negative for injury, kdr pain, redness, and discharge, ENT: Negative for injury, pain, and discharge, Neck: Negative for injury, pain, and swelling, Cardiovascular: Negative for chest pain, palpitations, and edema, Respiratory: Negative for shortness of breath, cough, wheezing, and pleuritic chest pain, Back: Negative for injury and pain, : Negative for injury, bleeding, discharge, and swelling, MS/Extremity: Negative for injury and deformity, Skin: Negative for injury, rash, and discoloration, Neuro: Negative for headache, weakness, numbness, tingling, and seizure activity. Psych: Negative for depression, anxiety, suicide ideation, homicidal ideation, and hallucinations, Allergy/Immunology: Negative for hives, rash, and allergies, Endocrine: Negative for neck swelling, polydipsia, polyuria, polyphagia, and marked weight changes, Hematologic/Lymphatic: Negative for swollen nodes, abnormal bleeding, and unusual bruising. 18:13 Abdomen/GI: Positive for abdominal pain, nausea, constipation, rectal pain, Negative for vomiting, diarrhea, abdominal distension, anorexia, dysphagia, hematemesis, black/tarry stool, rectal bleeding, bowel incontinence. Exam: 18:13 Constitutional: This is a well developed, well nourished patient who is awake, alert, kdr and in no acute distress. Head/Face: Normocephalic, atraumatic. Eyes: Pupils equal round and reactive to light, extra-ocular motions intact. Lids and lashes normal. Conjunctiva and sclera are non-icteric and not injected. Cornea within normal limits. Periorbital areas with no swelling, redness, or edema. Neck: Trachea midline, no thyromegaly or masses palpated, and no cervical lymphadenopathy. Supple, full range of motion without nuchal rigidity, or vertebral point tenderness. No Meningismus. Chest/axilla: Normal chest wall appearance and motion. Nontender with no deformity. No lesions are appreciated. Cardiovascular: Regular rate and rhythm with a normal S1 and S2. No gallops, murmurs, or rubs. Normal PMI, no JVD. No pulse deficits. Respiratory: Lungs have equal breath sounds bilaterally, clear to auscultation and percussion. No rales, rhonchi or wheezes noted. No increased work of breathing, no retractions or nasal flaring. Back: No spinal tenderness. No costovertebral tenderness. Full range of motion. Skin: Warm, dry with normal turgor. Normal color with no rashes, no lesions, and no evidence of cellulitis. MS/ Extremity: Pulses equal, no cyanosis. Neurovascular intact. Full, normal range of motion. Neuro: Awake and alert, GCS 15, oriented to person, place, time, and situation. Cranial nerves II-XII grossly intact. Motor strength 5/5 in all extremities. Sensory grossly intact. Cerebellar exam normal. Normal gait. Psych: Awake, alert, with orientation to person, place and time. Behavior, mood, and affect are within normal limits. 18:13 Abdomen/GI: Inspection: abdomen appears normal, Bowel sounds: active, all quadrants, Palpation: soft, mild abdominal tenderness, in the left lower quadrant. Vital Signs: 16:15 BP 129 / 79; Pulse 82; Resp 16; Temp 98.2(O); Pulse Ox 99% on R/A; Weight 86.18 kg; kr3 Height 5 ft. 2 in. (157.48 cm); Pain 9/10; 18:00 BP 143 / 60; Pulse 75; Resp 18 S; Pulse Ox 98% ; jg9 16:15 Body Mass Index 34.75 (86.18 kg, 157.48 cm) kr3 MDM: 18:13 Data reviewed: vital signs, nurses notes, lab test result(s), radiologic studies. kdr Counseling: I had a detailed discussion with the patient and/or guardian regarding: the historical points, exam findings, and any diagnostic results supporting the discharge/admit diagnosis, lab results, radiology results, the need for outpatient follow up. 19:18 Patient medically screened. [facility] 01/18 17:18 Order name: CBC with Diff; Complete Time: 18:17 [facility] 01/18 17:18 Order name: CMP; Complete Time: 18:17 [facility] 01/18 17:18 Order name: Lipase; Complete Time: 18:17 [facility] 01/18 17:26 Order name: CT Abd/Pelvis - IV Contrast Only; Complete Time: 22:31 [facility] 01/18 17:18 Order name: IV Saline Lock; Complete Time: 17:26 [facility] 01/18 17:18 Order name: Labs collected and sent; Complete Time: 17:26 kdr Administered Medications: 17:45 Drug: Fleet Enema (sodium phosphate) 133 ml Route: LA; jg9 18:51 Follow up: Response: No adverse reaction; No change in condition jg9 17:47 Drug: Dulcolax (bisacodyl) Delayed Release Tablet 5 mg Route: PO; jg9 18:50 Follow up: Response: No adverse reaction; No change in condition jg9 17:47 Not Given (Other Intervention Used): Magnesium Citrate Liquid 300 ml PO once jg9 18:00 Drug: NS 0.9% 500 ml Route: IV; Rate: bolus; Site: left antecubital; jg9 18:50 Follow up: IV Status: Completed infusion; IV Intake: 500ml j9 18:00 Drug: Lactulose 20 grams Volume: 30 ml; Route: PO; jg9 18:50 Follow up: Response: No adverse reaction; No change in condition jg9 Disposition Summary: 01/18/22 22:33 Discharge Ordered Location: Home [facility] Problem: new juanito Symptoms: have improved juanito Condition: Stable juanito Diagnosis - Abdominal pain, Generalized juanito - Vomiting juanito Followup: juanito - With: Private Physician - When: 2 - 3 days - Reason: Recheck today's complaints, Continuance of care, Re-evaluation by your physician Discharge Instructions: - Discharge Summary Sheet juanito - Abdominal Pain, Adult juanito - Nausea and Vomiting, Adult, [id number] juanito - Abdominal Pain, Adult, [id number] juanito Forms: - Medication Reconciliation Form [facility] - Thank You Letter juanito - Antibiotic Education [facility] - Prescription Opioid Use [facility] Prescriptions: - Pepcid 20 mg Oral Tablet - take 1 tablet by ORAL route every 12 hours for 10 days; 20 tablet; Refills: 0, [facility] Product Selection Permitted - Zofran 4 mg Oral Tablet - take 1 tablet by ORAL route every 12 hours As needed; 20 tablet; Refills: 0, [facility] Product Selection Permitted - dicyclomine 20 mg Oral Tablet - take 1 tablet by ORAL route 4 times per day; 28 tablet; Refills: 0, Product [facility] Selection Permitted Signatures: Dispatcher [employer] Dmitry Smith MD MD cha Rittger, Kevin, MD MD kdr Gilmore, Jennifer, RN RN jg9 Dominique Marie RN RN kr3
[2022-01-20 06:36] VITALS: BP 143/60; O2SAT 98
[2022-01-20 06:44] VITALS: TEMP 98.2
== END 2022-01-18 22:40 | disposition home or self-care (01) ==
LOC: ER 15:46
DX: R10.84 Generalized abdominal pain (principal); R11.10 Vomiting, unspecified
CPT/HCPCS: 85025; 36415; 83690; 80053; 74177; 96360; 99284; Q9967; J7040